=== PATIENT | female | born 1955 | race Caucasian/White ===

== ENCOUNTER → 2016-11-15 | Outpatient (CLI) | payer MEDICARE, OTHER ==
[~2016-11-15] MED LIST: 00186-0370-20 IH; ABILIFY 10MG TA10 MG PO; ABILIFY30 MG PO; APAP PO; ARICEPT10 MG PO; ATIVAN0.5 MG PO; ATIVAN2 MG; AZASAN75 MG PO; B-12100 MCG IM; CALCIUM600 M2; CENTRUM SILVER1 TA1 PO; COLESTID 1GM1 G PO; CYCLOBENZAPRINE10 MG PO; DESYREL DIVIDO150 M1 PO; DEXILANT60 MG PO; DIAZEPAM5 MG/5 ML PO; FLEXERIL 1010 MG/TAB PO; HUMIRA40 MG/0.1 SC; LAMICTAL 100MG100 MG PO; LAMICTAL 25MG T25 MG PO; LITHIUM 30300 MG/CAP PO; LORTAB 5/500 501 TAB PO; MASON NATURAL1200 MG PO; MELATONIN3 M1; MULTIVITAMIN SEN PO; MYSOLINE50 MG PO; NAPROSYN500 MG PO; NORCO 325 MG-51 TAB PO; NORCO 325 MG-7.1 TAB PO; OXYCODONE PO; PERCOCET 325 MG1 TA2 PO; PERCOCET 325 MG1 TA3 PO; PERCOCET 325 MG1 TAB PO; POTASSIUM99 MG PO; PREDNISONE1 MG PO; PRILOSEC 20MG20 MG PO; PRILOSEC10 MG PO; PROVENTIL0.09 MG/A1 IH; PROZAC 20MG20 MG PO; PROZAC40 MG PO; ROXICODONE 55 MG/TAB PO; SEROQUEL XR300 MG PO; SEROQUEL400 MG PO; SINEMET 25-1001 TAB PO; SINGULAIR10 MG PO; SYMBICORT1 AE1 IH; TRAZODONE HCL100 MG PO; VALIUM 5MG T5 MG/TAB PO; VITAMIN B11000 MCG/M IM; VITAMIN B12 PO; VITAMIND3 5000 PO; WELCHOL 625MG625 MG PO; XANAX0.5 MG PO; [UNRECOGNIZED DRUG - OTHER]
== END ==
LOC: BHSO 13:56
DX: F31.81 Bipolar II disorder (principal)

== ENCOUNTER → 2016-11-27 | Outpatient (CLI) | payer MEDICARE, OTHER | LOC: MC.RAD 13:40 | DX: Z12.31 Encounter for screening mammogram for malignant neoplasm of breast (principal) ==

== ENCOUNTER → 2017-01-03 | Outpatient (CLI) | payer MEDICARE, OTHER | LOC: BHSO 13:50 | DX: F31.73 Bipolar disorder, in partial remission, most recent episode manic (principal) ==

== ENCOUNTER 2017-01-19 05:29 | Day surgery (SDC) | payer MEDICARE, OTHER ==
[~2017-01-19] VITALS: Ht 160 cm; Wt 72.0 kg
[~2017-01-19 05:29] MED LIST changes: -ABILIFY30 MG PO; -PERCOCET 325 MG1 TA2 PO; -PERCOCET 325 MG1 TA3 PO; -PROZAC40 MG PO; -SEROQUEL XR300 MG PO
[2017-01-19] MEDS ORDERED: ABILIFY30 MG PO (06:35)
[2017-01-19] MEDS ORDERED: PROZAC40 MG PO (06:37)
[2017-01-19 06:39] VITALS: BP 122/67; PULSE 81; TEMP 98.1
[2017-01-19 10:00] VITALS: BP 117/62; PULSE 75; TEMP 98
[2017-01-19 10:15] VITALS: BP 114/51; PULSE 73
[2017-01-19 10:30] VITALS: BP 108/52; PULSE 73
[2017-01-19] MEDS ORDERED: PERCOCET 325 MG1 TA3 PO (10:35)
[2017-01-19 10:45] VITALS: BP 105/59; PULSE 73
== END 2017-01-19 11:08 | disposition home or self-care (01) ==
LOC: SDCO 05:29
DX: M20.11 Hallux valgus (acquired), right foot (principal); M20.41 Other hammer toe(s) (acquired), right foot; M19.071 Primary osteoarthritis, right ankle and foot; F17.210 Nicotine dependence, cigarettes, uncomplicated
CPT/HCPCS: C1713; J0670; J0690; J2250; J2704; J3010; J7120

== ENCOUNTER → 2017-02-27 | Outpatient (CLI) | payer MEDICARE, OTHER ==
[~2017-02-27] MED LIST changes: +ABILIFY30 MG PO; +PERCOCET 325 MG1 TA2 PO; +PERCOCET 325 MG1 TA3 PO; +PROZAC40 MG PO; +SEROQUEL XR300 MG PO
== END ==
LOC: BHSO 13:22
DX: F31.73 Bipolar disorder, in partial remission, most recent episode manic (principal)

== ENCOUNTER → 2017-04-25 | Outpatient (CLI) | payer MEDICARE, OTHER | LOC: BHSO 12:50 | DX: F31.73 Bipolar disorder, in partial remission, most recent episode manic (principal) ==

== ENCOUNTER 2017-05-22 08:08 | Day surgery (SDC) | payer MEDICARE, OTHER ==
[~2017-05-22] VITALS: Ht 160 cm; Wt 66.1 kg
[2017-05-22] VITALS (7 sets, daily range): BP systolic 87–129; BP diastolic 50–87; PULSE 71–81; TEMP 98.2
[~2017-05-22 08:08] MED LIST changes: -PERCOCET 325 MG1 TA2 PO; -SEROQUEL XR300 MG PO
== END 2017-05-22 12:00 | disposition home or self-care (01) ==
LOC: SDCO 08:08
DX: L72.0 Epidermal cyst (principal); M19.90 Unspecified osteoarthritis, unspecified site; J45.909 Unspecified asthma, uncomplicated; F41.9 Anxiety disorder, unspecified; F32.3 Major depressive disorder, single episode, severe with psychotic features; K21.9 Gastro-esophageal reflux disease without esophagitis; G43.909 Migraine, unspecified, not intractable, without status migrainosus; F17.210 Nicotine dependence, cigarettes, uncomplicated; G47.33 Obstructive sleep apnea (adult) (pediatric); Z90.49 Acquired absence of other specified parts of digestive tract
CPT/HCPCS: J1885; J2250; J2405; J2704; J3010; J7120

== ENCOUNTER 2017-06-02 09:30 | Emergency (ER) | payer MEDICARE, OTHER ==
[~2017-06-02] VITALS: Ht 160 cm; Wt 64.5 kg
[2017-06-02 09:32] VITALS: TEMP 98.6
[2017-06-02] MEDS ORDERED: SEROQUEL XR300 MG PO (09:50)
[2017-06-02] MEDS ORDERED: DESYREL DIVIDO150 M1 PO (09:51)
[2017-06-02] MEDS ORDERED: PERCOCET 325 MG1 TA2 PO (10:50)
[2017-06-02 11:10] VITALS: BP 118/62; PULSE 74
== END 2017-06-02 11:10 | disposition home or self-care (01) ==
LOC: COL.ER 09:30
DX: S63.501A Unspecified sprain of right wrist, initial encounter (principal); K50.00 Crohn's disease of small intestine without complications; J45.909 Unspecified asthma, uncomplicated; W01.10XA Fall on same level from slipping, tripping and stumbling with subsequent striking against unspecified object, initial encounter; Y92.009 Unspecified place in unspecified non-institutional (private) residence as the place of occurrence of the external cause

== ENCOUNTER → 2017-09-07 | Outpatient (CLI) | payer MEDICARE, OTHER ==
[~2017-09-07] MED LIST changes: +PERCOCET 325 MG1 TA2 PO; +SEROQUEL XR300 MG PO
== END ==
LOC: BHSO 10:54
DX: F31.73 Bipolar disorder, in partial remission, most recent episode manic (principal)

== ENCOUNTER → 2017-11-21 | Outpatient (CLI) | payer MEDICARE, OTHER | LOC: COL.PUL 12:49 | DX: J44.9 Chronic obstructive pulmonary disease, unspecified (principal); F17.210 Nicotine dependence, cigarettes, uncomplicated ==

== ENCOUNTER → 2017-12-25 | Outpatient (CLI) | payer MEDICARE, OTHER | LOC: BHSO 11:14 | DX: F25.0 Schizoaffective disorder, bipolar type (principal) | CPT/HCPCS: G0463 ==

== ENCOUNTER → 2018-01-04 | Outpatient (CLI) | payer MEDICARE, OTHER | LOC: MC.RAD 10:20 | DX: Z12.31 Encounter for screening mammogram for malignant neoplasm of breast (principal); R92.0 Mammographic microcalcification found on diagnostic imaging of breast ==

== ENCOUNTER → 2018-01-15 | Outpatient (CLI) | payer MEDICARE, OTHER | LOC: COL.RAD 13:29 | DX: M25.561 Pain in right knee (principal) ==

== ENCOUNTER → 2018-01-18 | Outpatient (CLI) | payer MEDICARE, OTHER | LOC: MC.RAD 11:23 | DX: R92.0 Mammographic microcalcification found on diagnostic imaging of breast (principal) ==

== ENCOUNTER → 2018-02-15 | Outpatient (CLI) | payer MEDICARE, OTHER | LOC: BHSO 13:34 | DX: F25.0 Schizoaffective disorder, bipolar type (principal) | CPT/HCPCS: G0463 ==

== ENCOUNTER → 2018-02-21 | Outpatient (CLI) | payer MEDICARE, OTHER ==
[2018-02-21 10:52] LABS: ALBUMIN 3.8 gm/dL (3.5-5.0); BILIRUBIN,TOTAL 0.4 mg/dL (0.0-1.0); CALCIUM 9.1 mg/dL (8.4-10.2); CHOLESTEROL RISK RATIO 2.8; CREATININE, serum 0.87 mg/dL (0.52-1.25); POTASSIUM 4.3 mmol/L (3.4-5.0); TOTAL PROTEIN 7.7 gm/dL (6.4-8.2)
[2018-02-21 11:22] LABS: THYROID STIMULATING HORMONE 2.43 uIU/mL (0.465-4.680)
== END ==
LOC: COL.LAB 10:09
PROVIDERS: Internal Medicine Interventional Cardiology
DX: Z79.899 Other long term (current) drug therapy (principal)

== ENCOUNTER → 2018-05-17 | Outpatient (CLI) | payer MEDICARE, OTHER | LOC: BHSO 10:00 | DX: F43.10 Post-traumatic stress disorder, unspecified (principal) | CPT/HCPCS: G0463 ==

== ENCOUNTER → 2018-06-12 | Outpatient (CLI) | payer MEDICARE, OTHER ==
[~2018-06-12] MED LIST changes: +ESTRACE0.1 MG/GM VG; +EVISTA 60MG60 MG/TAB PO; +NYSTATIN CREAM15 GM TP; +SPIRIVA RE2.5 MCG/Ac IH; +WELLBUTRIN XL150 MG PO
== END ==
LOC: COL.VAS 08:39
DX: J44.9 Chronic obstructive pulmonary disease, unspecified (principal); J45.902 Unspecified asthma with status asthmaticus; I34.0 Nonrheumatic mitral (valve) insufficiency

== ENCOUNTER 2018-07-02 20:57 | Emergency (ER) | payer MEDICARE, OTHER ==
[~2018-07-02] VITALS: Ht 160 cm; Wt 79.5 kg
[2018-07-02 21:01] VITALS: BP 144/79; TEMP 98.9
[2018-07-02] MEDS ORDERED: PERCOCET 325 MG1 TA2 PO (21:28)
[2018-07-02 21:45] VITALS: PULSE 77
== END 2018-07-02 23:54 | disposition home or self-care (01) ==
LOC: COL.ER 20:57
DX: M25.561 Pain in right knee (principal); F41.0 Panic disorder [episodic paroxysmal anxiety]; F31.9 Bipolar disorder, unspecified; Z87.19 Personal history of other diseases of the digestive system

== ENCOUNTER → 2018-07-16 | Outpatient (CLI) | payer MEDICARE, OTHER ==
[2018-07-16 09:45] LABS: HEMATOCRIT 43.9 % (37.0-47.0); HEMOGLOBIN 14.6 g/dl (12.5-16.0); MEAN CELL VOLUME 96 fl (80.0-100.0); MEAN CORPUSCULAR HEMOGLOBIN 32 pg (27.0-31.0); MEAN CORPUSCULAR HGB CONC 33 g/dl (33.0-37.0); MEAN PLATELET VOLUME 10.4 fl (7.4-10.4); PLATELET COUNT 254 K/mm3 (130-400); RED BLOOD COUNT 4.56 M/mm3 (4.10-5.30); REDCELL DISTRIBUTION WIDTH-CV 14.2 % (11.5-14.5)
[2018-07-16 10:10] LABS: ERYTHROCYTE SEDIMENTATION RATE 9 mm/hr (0-30)
== END ==
LOC: COL.LAB 08:52
PROVIDERS: Orthopaedic Surgery
DX: M25.561 Pain in right knee (principal); Z98.890 Other specified postprocedural states

== ENCOUNTER → 2018-07-17 | Outpatient (CLI) | payer MEDICARE, OTHER | LOC: BHSO 13:35 | DX: F43.10 Post-traumatic stress disorder, unspecified (principal) | CPT/HCPCS: G0463 ==

== ENCOUNTER → 2018-09-27 | Outpatient (CLI) | payer MEDICARE, OTHER | LOC: BHSO 12:55 | DX: F43.10 Post-traumatic stress disorder, unspecified (principal) | CPT/HCPCS: G0463 ==

== ENCOUNTER → 2019-01-23 | Outpatient (CLI) | payer MEDICARE, OTHER | LOC: MC.RAD 14:45 | DX: Z12.31 Encounter for screening mammogram for malignant neoplasm of breast (principal) ==

== ENCOUNTER → 2019-03-12 | Outpatient (CLI) | payer MEDICARE, OTHER | LOC: BHSO 13:01 | DX: F43.10 Post-traumatic stress disorder, unspecified (principal) | CPT/HCPCS: G0463 ==

== ENCOUNTER → 2019-05-22 | Outpatient (CLI) | payer MEDICARE, OTHER ==
[2019-05-22 16:47] LABS: BASO % 0.6 % (0.0-2.0); EOS # 0.1 (0.0-0.7); EOS % 1.7 % (0-4.0); GRAN # 2.4 (1.4-6.5); GRAN % 51.7 % (42.2-75.2); HEMATOCRIT 36.3 % (37.0-47.0); HEMOGLOBIN 12.6 g/dl (12.5-16.0); LYMPH # 1.9 (1.2-3.4); LYMPH % 39.4 % (20.0-51.0); MEAN CELL VOLUME 99 fl (80.0-100.0); MEAN CORPUSCULAR HEMOGLOBIN 34 pg (27.0-31.0); MEAN CORPUSCULAR HGB CONC 35 g/dl (33.0-37.0); MEAN PLATELET VOLUME 12.1 fl (7.4-10.4); MONO # 0.3 (0.1-0.6); MONO % 6.2 % (1.7-9.3); PLATELET COUNT 76 K/mm3 (130-400); RED BLOOD COUNT 3.67 M/mm3 (4.10-5.30); REDCELL DISTRIBUTION WIDTH-CV 14.5 % (11.5-14.5)
== END ==
LOC: COL.LAB 15:36
PROVIDERS: Internal Medicine Pulmonary Disease
DX: R05 Cough (principal)

== ENCOUNTER 2019-05-30 08:53 | Day surgery (SDC) | payer MEDICARE, OTHER ==
[~2019-05-30] VITALS: Ht 160 cm; Wt 76.0 kg
[~2019-05-30 08:53] MED LIST changes: -HUMIRA40 MG/0.1 SC; +HUMIRA40 MG/0.8 SQ
[2019-05-30] MEDS ORDERED: PROAIR HFA0.09 MG/AC IH (09:44)
[2019-05-30] MEDS ORDERED: MIRAPEX 0.0.125 MG/T PO (09:45)
[2019-05-30] MEDS ORDERED: SEROQUEL 200MG200 MG PO (09:46)
[2019-05-30 10:05] VITALS: BP 125/70; PULSE 80; TEMP 98.9
[2019-05-30 10:55] VITALS: BP 141/81; PULSE 75; TEMP 98.7
--- NOTE | 2019-05-30 10:55 | NUR ---
Pt to [facility] bay 8 via cart. Pt awake and alert. Pt ambulates to recliner with stand by assistance. Warm blanket provided. VSS. Muffin and soda given per pt request. No visitors are here with pt at this time. Will continue to monitor. Call light within reach.
[2019-05-30 11:10] VITALS: BP 100/64; PULSE 82
--- NOTE | 2019-05-30 11:10 | NUR ---
Pt continues to rest. Denies needs. Tolerating food and fluids without problems. Call light within reach.
[2019-05-30 11:25] VITALS: BP 122/68; PULSE 72
--- NOTE | 2019-05-30 11:25 | NUR ---
Pt continues to rest. Denies needs. Call light within reach.
--- NOTE | 2019-05-30 11:40 | NUR ---
Discharge instructions reviewed. Pt voices understanding. IV site discontinued with all parts intact. Pt up to dress. Call light within reach.
--- NOTE | 2019-05-30 11:50 | NUR ---
Pt escorted to private car via wheel chair. Pt accompanied home by her .
== END 2019-05-30 11:50 | disposition home or self-care (01) ==
LOC: SDCO 08:53
DX: K21.0 Gastro-esophageal reflux disease with esophagitis (principal); K50.90 Crohn's disease, unspecified, without complications; F17.210 Nicotine dependence, cigarettes, uncomplicated; K21.9 Gastro-esophageal reflux disease without esophagitis; K44.9 Diaphragmatic hernia without obstruction or gangrene; G89.29 Other chronic pain; M54.2 Cervicalgia; M19.90 Unspecified osteoarthritis, unspecified site; Z79.899 Other long term (current) drug therapy; Z88.6 Allergy status to analgesic agent; Z88.0 Allergy status to penicillin; Z88.8 Allergy status to other drugs, medicaments and biological substances; F32.9 Major depressive disorder, single episode, unspecified; F41.9 Anxiety disorder, unspecified; J43.9 Emphysema, unspecified; G47.33 Obstructive sleep apnea (adult) (pediatric)
CPT/HCPCS: J2704

== ENCOUNTER → 2019-07-02 | Outpatient (CLI) | payer MEDICARE, OTHER ==
[~2019-07-02] MED LIST changes: +MIRAPEX 0.0.125 MG/T PO; +PROAIR HFA0.09 MG/AC IH; +SEROQUEL 200MG200 MG PO
[2019-07-02 16:06] LABS: BASO # 0.1 (0.0-0.2); BASO % 0.7 % (0.0-2.0); EOS # 0.2 (0.0-0.7); EOS % 2.4 % (0-4.0); GRAN # 3.2 (1.4-6.5); GRAN % 36.7 % (42.2-75.2); HEMATOCRIT 40.9 % (37.0-47.0); HEMOGLOBIN 13.5 g/dl (12.5-16.0); LYMPH # 4.3 (1.2-3.4); LYMPH % 49.7 % (20.0-51.0); MEAN CELL VOLUME 96 fl (80.0-100.0); MEAN CORPUSCULAR HEMOGLOBIN 32 pg (27.0-31.0); MEAN CORPUSCULAR HGB CONC 33 g/dl (33.0-37.0); MEAN PLATELET VOLUME 10.4 fl (7.4-10.4); MONO # 0.9 (0.1-0.6); MONO % 10.4 % (1.7-9.3); PLATELET COUNT 211 K/mm3 (130-400); RED BLOOD COUNT 4.25 M/mm3 (4.10-5.30); REDCELL DISTRIBUTION WIDTH-CV 14.2 % (11.5-14.5)
== END ==
LOC: COL.LAB 15:18
PROVIDERS: Internal Medicine Pulmonary Disease
DX: J44.9 Chronic obstructive pulmonary disease, unspecified (principal)

== ENCOUNTER → 2019-07-28 | Outpatient (CLI) | payer MEDICARE, OTHER | LOC: COL.VAS 13:30 | DX: I36.1 Nonrheumatic tricuspid (valve) insufficiency (principal); J44.9 Chronic obstructive pulmonary disease, unspecified ==

== ENCOUNTER → 2019-10-29 | Outpatient (CLI) | payer MEDICARE, OTHER | LOC: BHSO 08:19 | DX: F43.10 Post-traumatic stress disorder, unspecified (principal) | CPT/HCPCS: G0463 ==

== ENCOUNTER → 2019-11-11 | Outpatient (CLI) | payer MEDICARE, OTHER ==
[2019-11-11 22:13] LABS: RHEUMATOID FACTOR-SCREEN <15 IU/mL (0-29)
[2019-11-11 23:02] LABS: IMMUNOGLOBULIN A 438 mg/dL (69-517); IMMUNOGLOBULIN G 1225 mg/dL (552-1631); IMMUNOGLOBULIN M, QUANTITATIVE 123 mg/dL (33-293)
[2019-11-13 14:04] LABS: ANGIOTENSIN CONVERTING ENZYME 83 U/L (16 - 85)
[2019-11-13 15:46] LABS: C-ANCA 8 U/mL (0-99)
== END ==
LOC: COL.LAB 11:28
PROVIDERS: Internal Medicine Pulmonary Disease
DX: J84.10 Pulmonary fibrosis, unspecified (principal)

== ENCOUNTER → 2019-12-25 | Outpatient (CLI) | payer MEDICARE, OTHER ==
[2019-12-25 15:43] LABS: HEMATOCRIT 41.4 % (37.0-47.0); HEMOGLOBIN 14.1 g/dl (12.5-16.0); MEAN CELL VOLUME 93 fl (80.0-100.0); MEAN CORPUSCULAR HEMOGLOBIN 32 pg (27.0-31.0); MEAN CORPUSCULAR HGB CONC 34 g/dl (33.0-37.0); MEAN PLATELET VOLUME 10.2 fl (7.4-10.4); PLATELET COUNT 211 K/mm3 (130-400); RED BLOOD COUNT 4.45 M/mm3 (4.10-5.30); REDCELL DISTRIBUTION WIDTH-CV 14.2 % (11.5-14.5)
[2019-12-25 15:53] LABS: ALBUMIN 4.2 gm/dL (3.5-5.0); BILIRUBIN,TOTAL 0.5 mg/dL (0.0-1.0); CALCIUM 9.6 mg/dL (8.4-10.2); CREATININE, serum 0.74 (0.52-1.25); POTASSIUM 3.9 mmol/L (3.4-5.0); TOTAL PROTEIN 7.6 gm/dL (6.4-8.2)
[2019-12-25 16:00] LABS: BAND 1 % (0-10); EOSINOPHIL 3 % (0-4); LYMPHOCYTE 47 % (20.0-51.0); NEUTROPHILS 43 % (42.0-75.2); PLATELET ESTIMATE NORMAL (NORMAL)
== END ==
LOC: COL.LAB 15:08
PROVIDERS: Family Medicine
DX: M81.0 Age-related osteoporosis without current pathological fracture (principal); E53.8 Deficiency of other specified B group vitamins

== ENCOUNTER → 2020-01-30 | Outpatient (CLI) | payer MEDICARE, OTHER ==
[~2020-01-30] MED LIST changes: +ABILIFY 15MG TA15 MG PO; -ABILIFY30 MG PO; -SEROQUEL 200MG200 MG PO; +SEROQUEL300 MG PO
== END ==
LOC: COL.LAB 08:34
DX: J44.9 Chronic obstructive pulmonary disease, unspecified (principal)

== ENCOUNTER → 2020-01-30 | Outpatient (CLI) | payer MEDICARE, OTHER ==
[2020-01-30 09:29] LABS: ALBUMIN 4.2 gm/dL (3.5-5.0); BILIRUBIN,TOTAL 0.6 mg/dL (0.0-1.0); CALCIUM 9.3 mg/dL (8.4-10.2); CHOLESTEROL RISK RATIO 2.5; CREATININE, serum 0.78 (0.52-1.25); POTASSIUM 3.6 mmol/L (3.4-5.0); TOTAL PROTEIN 7.7 gm/dL (6.4-8.2)
[2020-01-30 09:58] LABS: THYROID STIMULATING HORMONE 3.04 uIU/mL (0.465-4.680)
== END ==
LOC: COL.LAB 08:36
PROVIDERS: Psychiatry & Neurology Psychiatry
DX: Z79.899 Other long term (current) drug therapy (principal)

== ENCOUNTER 2020-02-11 19:08 | Inpatient (IN) | payer MEDICARE ==
[~2020-02-11] VITALS: Ht 157.5 cm; Wt 71.6 kg
[2020-02-11 20:00] LABS: HEMATOCRIT 39.9 % (37.0-47.0); MEAN CELL VOLUME 91 fl (80.0-100.0); MEAN CORPUSCULAR HEMOGLOBIN 32 pg (27.0-31.0); MEAN CORPUSCULAR HGB CONC 35 g/dl (33.0-37.0); MEAN PLATELET VOLUME 10.5 fl (7.4-10.4); PLATELET COUNT 187 K/mm3 (130-400); RED BLOOD COUNT 4.39 M/mm3 (4.10-5.30)
[2020-02-11 20:14] LABS: ALBUMIN 4.2 gm/dL (3.5-5.0); BILIRUBIN,TOTAL 1.5 mg/dL (0.0-1.0); CALCIUM 8.9 mg/dL (8.4-10.2); CREATININE, serum 0.56 (0.52-1.25); POTASSIUM 3.5 mmol/L (3.4-5.0); TOTAL PROTEIN 7.9 gm/dL (6.4-8.2)
[2020-02-11 20:44] LABS: LYMPHOCYTE 17 % (20.0-51.0); NEUTROPHILS 77 % (42.0-75.2); PLATELET ESTIMATE NORMAL (NORMAL)
[2020-02-11 22:13] LABS: COLLECTION METHOD CLEAN CATCH
[2020-02-11 22:21] LABS: MUCOUS Present /lpf; PH 7 (5-8); SQUAMOUS EPITHELIAL 0-2 /hpf; URINE APPEARANCE Hazy; URINE BACTERIA Rare /hpf; URINE BILIRUBIN Negative (NEGATIVE); URINE BLOOD Negative (NEGATIVE); URINE COLOR Yellow; URINE GLUCOSE Negative (NEGATIVE); URINE KETONE 2+ (NEGATIVE); URINE LEUKOCYTE ESTERASE 2+ (NEGATIVE); URINE NITRATE Negative (NEGATIVE); URINE PROTEIN(semi-quant) 1+ (NEGATIVE); URINE RBC 0-2 /hpf
[2020-02-11 23:47] LABS: INR 1.1 (0.8-3.0); PROTHROMBIN TIME 12.2 SECONDS (9.7-12.8)
[2020-02-11 23:57] LABS: CREATINE KINASE 119 U/L (30-135); LACTATE DEHYDROGENASE 1001 U/L (313-618); MAGNESIUM 1.8 mg/dL (1.6-2.3)
[2020-02-12] VITALS (7 sets, daily range): BP systolic 121–138; BP diastolic 60–82; PULSE 86–91; TEMP 98.1–99.6
[2020-02-12 00:10] LABS: C-REACTIVE PROTEIN 13.8 mg/dL (0.0-0.9); TROPONIN-I < 0.012 ng/mL (0.000-0.035)
--- NOTE | 2020-02-12 00:15 | NUR ---
Received patient via stretcher from ER. She is alert and oriented. She is independent. She has some body pain and cough. With INT at right forearm. Covid 19 swab done at ER already. Instructed patient on her diet and fluid restriction. Hat placed in the toilet bowl and explained to patient the need for sample for urine. Instructed her for sputum specimen as well though she said her cough is dry.
[2020-02-12] MEDS ORDERED: OMEGA-3 1000 MG1 CAP PO (00:29)
[2020-02-12] MEDS ORDERED: VITAMIN D31000 I1 PO (00:30)
[2020-02-12] MEDS ORDERED: DESYREL DIVIDO150 M1 PO (00:32)
[2020-02-12] MEDS ORDERED: VALIUM 10MG10 MG/TAB PO (00:34)
[2020-02-12] MEDS ORDERED: WELLBUTRIN XL150 MG PO (00:36)
--- NOTE | 2020-02-12 00:55 | NUR ---
Seroquel 100mg not available in [facility], only 25mg. Informed tobacco warehouse agent and they will get the required dosage in pharmacy.
[2020-02-12 03:30] LABS: ARTERIAL BLD GAS O2 SATURATION 90.3 % (92-100); ARTERIAL BLD GAS TCO2 CT 18.5; ARTERIAL BLOOD GAS BASE EXCESS -5.4 (-2-2); ARTERIAL BLOOD GAS HCO3 17.6 meq/L (22-26); ARTERIAL BLOOD GAS PCO2 27.9 mmHg (35-45); ARTERIAL BLOOD GAS PO2 55.5 mmHg (80-100); ARTERIAL BLOOD GAS pH 7.42 (7.35-7.45)
--- NOTE | 2020-02-12 07:39 | NUR ---
Patient is afebrile the whole shift. Still with dry cough. ABG is a bit low, started with O2 at 2lpm via NC. Will endorse to
--- NOTE | 2020-02-12 11:00 | NUR ---
Patient has been up and down a lot. She stated she is having more coughing today than yesterday but that it is still a very dry cough. No complaints of nausea. She stated she has a continuous headached but its better this morning. No other changes at this time. Offered something for her couh but she did not want it at this time. Call light within reach.
--- NOTE | 2020-02-12 11:21 | NUR ---
RAUL contacted the patient's , Felipe (ph#[phone]), to discuss discharge plan. The patient is on COVID precautions and did not answer her phone. The patient lives in [place] with her . Felipe reports that the patient is independent with ADLs and has a CPAP. The patient's PCP is Dr. Dat Bolivar and she receives her medications at [facility]. He reports no difficulties obtaining her meds. The patient does not have advanced directives completed. Felipe reports that the plan is for the patient to return back home with him upon discharge. The patient is pending results for COVID. She is currently on 2 liters of oxygen. SW to continue to follow.
[2020-02-12 14:18] LABS: BASO % 0.3 % (0.0-2.0); EOS # 0.2 (0.0-0.7); EOS % 1.4 % (0-4.0); GRAN # 8.2 (1.4-6.5); GRAN % 69.7 % (42.2-75.2); HEMATOCRIT 37.8 % (37.0-47.0); HEMOGLOBIN 13.1 g/dl (12.5-16.0); LYMPH # 2.1 (1.2-3.4); LYMPH % 18.1 % (20.0-51.0); MEAN CELL VOLUME 92 fl (80.0-100.0); MEAN CORPUSCULAR HEMOGLOBIN 32 pg (27.0-31.0); MEAN CORPUSCULAR HGB CONC 35 g/dl (33.0-37.0); MEAN PLATELET VOLUME 10.6 fl (7.4-10.4); MONO # 1.2 (0.1-0.6); MONO % 10.2 % (1.7-9.3); PLATELET COUNT 160 K/mm3 (130-400); REDCELL DISTRIBUTION WIDTH-CV 14.3 % (11.5-14.5)
[2020-02-12 14:28] LABS: ALBUMIN 3.6 gm/dL (3.5-5.0); BILIRUBIN,TOTAL 1.3 mg/dL (0.0-1.0); CALCIUM 8.4 mg/dL (8.4-10.2); CREATININE, serum 0.57 (0.52-1.25); POTASSIUM 3.4 mmol/L (3.4-5.0); TOTAL PROTEIN 7.1 gm/dL (6.4-8.2)
--- NOTE | 2020-02-12 19:00 | NUR ---
Patients headache and cough got worse this afternoon. She stated that the tramadol and tylenol is not helping her head. She got one time orders for norco and toradol that was given. Patients IV was changed this afternoon, it infiltrated. No other changes at this time. Call light within reach.
--- NOTE | 2020-02-12 20:45 | NUR ---
Resting in bed. Assessment complete. Wheezing with expiration. Denies shortness of breath. On 2 liters nasal cannula at 90% currently. Heart sounds normal. Bowels active x4. Pulses present. No edema noted. IV left forearm without complications. Denies pain. Denies needs. Call light in reach. Will monitor.
--- NOTE | 2020-02-12 22:00 | NUR ---
Notified Lucia CAMARA patient covid test negative. Okay to move out of isolation. Will be moved to 307.
--- NOTE | 2020-02-12 22:32 | NUR ---
Patient reports 8/10 headache from dry cough. Refused norco request toradol. HOA Myers added one time dose for patient.
[2020-02-13] VITALS (582 sets, daily range): BP systolic 134–143; BP diastolic 68–80; PULSE 81–96; TEMP 98.3–99.7; O2SAT 82–99
--- NOTE | 2020-02-13 04:10 | NUR ---
Reports airway tightness. 88% on 2 liters. Increased to 3 liters. 90-91%. Right upper lobe dimished otherwise clear. Contacted respiratory for PRN albuterol inhaler. Will monitor.
--- NOTE | 2020-02-13 04:44 | NUR ---
0420 patient continued to have increase oxygen needs up to 6 liters oxymask. 0429 Spoke with Lucia CAMARA. ABG and chest CT ordered. patient updated. Spoke with respiratory.
[2020-02-13 05:09] LABS: ARTERIAL BLD GAS O2 SATURATION 92.1 % (92-100); ARTERIAL BLD GAS TCO2 CT 18.7; ARTERIAL BLOOD GAS BASE EXCESS -5.7 (-2-2); ARTERIAL BLOOD GAS HCO3 17.8 meq/L (22-26); ARTERIAL BLOOD GAS PCO2 29.4 mmHg (35-45); ARTERIAL BLOOD GAS PO2 61.1 mmHg (80-100)
--- NOTE | 2020-02-13 05:09 | NUR ---
Patient left for CT. Santos leone.
[2020-02-13 05:34] LABS: BASO % 0.3 % (0.0-2.0); EOS # 0.3 (0.0-0.7); EOS % 1.9 % (0-4.0); GRAN # 10.6 (1.4-6.5); HEMOGLOBIN 12.6 g/dl (12.5-16.0); LYMPH # 3.1 (1.2-3.4); LYMPH % 20.2 % (20.0-51.0); MEAN CELL VOLUME 94 fl (80.0-100.0); MEAN CORPUSCULAR HEMOGLOBIN 32 pg (27.0-31.0); MEAN CORPUSCULAR HGB CONC 34 g/dl (33.0-37.0); MONO # 1.1 (0.1-0.6); MONO % 7.1 % (1.7-9.3); PLATELET COUNT 175 K/mm3 (130-400); RED BLOOD COUNT 3.92 M/mm3 (4.10-5.30); REDCELL DISTRIBUTION WIDTH-CV 14.2 % (11.5-14.5)
[2020-02-13 05:35] LABS: HEMATOCRIT 36.8 % (37.0-47.0)
--- NOTE | 2020-02-13 05:40 | NUR ---
Patient returned from CT. INT started in left AC.
[2020-02-13 05:46] LABS: ALBUMIN 3.4 gm/dL (3.5-5.0); BILIRUBIN,TOTAL 1.2 mg/dL (0.0-1.0); CALCIUM 8.1 mg/dL (8.4-10.2); CREATININE, serum 0.58 (0.52-1.25); POTASSIUM 3.2 mmol/L (3.4-5.0); TOTAL PROTEIN 7.1 gm/dL (6.4-8.2)
--- NOTE | 2020-02-13 06:00 | NUR ---
CT results in. Lucia notified. Orders added.
--- NOTE | 2020-02-13 06:48 | NUR ---
Vancomycin Initial Dosing Pharmacy Note Ordering provider: Lucia Donovan APRN Indication/duration: PNA LABS: eCrCl~ 90 mL/min Recommendation: Loading dose: 1 gram ordered for 02/13/20 @ 07:00 Maintenance dose: 750 mg every 8 hours starting 02/13/20 @ 15:00 Trough goal: 15-20 ug/mL with first trough to be drawn 02/15/20 @ 06:30. Will continue to follow.
--- NOTE | 2020-02-13 07:11 | NUR ---
Report given to YAIMA Snider
--- NOTE | 2020-02-13 08:49 | NUR ---
Noted patient sitting on the side of bed. C/O significant shortness of breathe. States it worse when she moves around. She is currently on 7L/oxy mask with 02 stats 84-85%. Patient verbalizes difficultly breathing. Patient skin warm/dry. She is alert and oriented. Resp labored at 26/min. Lungs diminished with noted coarse breath sounds and expiratory wheezing. Patient oxygen turned up to 15L/Mask. RT made aware and Dr. Jauregui called. New orders recieved for EKG/ CXR/and ABG's. Patient/RT/Radiology made made aware. 02 sats are currently 92% on 15l/mask
--- NOTE | 2020-02-13 08:58 | NUR ---
Pt awake and alert this morning, has C/O headache, medications given for relief. Shift assessments complete, left Pt call light in reach, bed in lowest position.
[2020-02-13 09:12] LABS: ARTERIAL BLD GAS O2 SATURATION 92.2 % (92-100); ARTERIAL BLOOD GAS BASE EXCESS -3.8 (-2-2); ARTERIAL BLOOD GAS HCO3 19.1 meq/L (22-26); ARTERIAL BLOOD GAS PCO2 28.9 mmHg (35-45); ARTERIAL BLOOD GAS PO2 57.1 mmHg (80-100); ARTERIAL BLOOD GAS pH 7.44 (7.35-7.45)
--- NOTE | 2020-02-13 10:12 | NUR ---
The patient was transferred to ICU and is being retested for Covid-19 and placed back on precautions.
[2020-02-13 15:18] LABS: CREATININE, serum 0.63 (0.52-1.25); MAGNESIUM 1.8 mg/dL (1.6-2.3); POTASSIUM 3.8 mmol/L (3.4-5.0)
[2020-02-14] VITALS (764 sets, daily range): BP systolic 105–148; BP diastolic 58–79; PULSE 82–86; TEMP 97.8–99; O2SAT 74–99
[2020-02-14 07:07] LABS: BASO % 0.1 % (0.0-2.0); GRAN % 88.8 % (42.2-75.2); LYMPH # 1.1 (1.2-3.4); LYMPH % 7.4 % (20.0-51.0); MEAN CELL VOLUME 93 fl (80.0-100.0); MEAN CORPUSCULAR HEMOGLOBIN 32 pg (27.0-31.0); MEAN CORPUSCULAR HGB CONC 34 g/dl (33.0-37.0); MEAN PLATELET VOLUME 10.9 fl (7.4-10.4); MONO # 0.5 (0.1-0.6); MONO % 3.1 % (1.7-9.3); PLATELET COUNT 206 K/mm3 (130-400); RED BLOOD COUNT 4.08 M/mm3 (4.10-5.30); REDCELL DISTRIBUTION WIDTH-CV 14.2 % (11.5-14.5)
[2020-02-14 07:19] LABS: ALBUMIN 3.5 gm/dL (3.5-5.0); CALCIUM 8.2 mg/dL (8.4-10.2); CREATININE, serum 0.57 (0.52-1.25); POTASSIUM 3.8 mmol/L (3.4-5.0); TOTAL PROTEIN 7.3 gm/dL (6.4-8.2)
--- NOTE | 2020-02-14 12:56 | NUR ---
PT RESTING IN BED, CALM ANND APPEARS RELAXED AT THIS TIME, MD. DR DOHERTY AT BEDSIDE ASSESSING PT AND DR AVILA WAS HERE AT BEDSIDE EARLIER. PT REMAINS ON AIR-VO 30L AND 48%. UPDATE MD RE; K LVL AND MEDS PT WAS REQUESTING. ORDERS WERE RECIEVED. WILL CONTINUE TO MONITOR PT STATUS AND UPDATE MD'S NEEDED.
--- NOTE | 2020-02-14 18:44 | NUR ---
HERMINIO SENIOR POLICY ANALYST WAS CALLED AND UPDATED RE; PT DOA DESPITE SETTINGS ON AIR-VO, ORDERS RECIEVED.
[2020-02-14 19:27] LABS: ARTERIAL BLD GAS TCO2 CT 19.1; ARTERIAL BLOOD GAS BASE EXCESS -2.9 (-2-2); ARTERIAL BLOOD GAS HCO3 18.3 meq/L (22-26)
[2020-02-14 19:28] LABS: ARTERIAL BLOOD GAS PO2 48.4 mmHg (80-100)
--- NOTE | 2020-02-14 23:30 | NUR ---
At appx. 2030, the decision to intubate was discussed with the patient. All questions and concerns from the patient were answered by HOA Myers. PT moved from ICU room 4 to ICU room 8 since PT is no longer a PUI. Time out performed at 2157 in the patient room with the patient confirming the procedure. Intubation procedure lasted from 3439-4267. Appx. 45 minutes post intubation, PT BP dropped to a systolic in the 70's-80's. HOA Myers notified and an order for 1L LR bolus over 2 hours was placed. PT BP's back to goal range appx. 1 hour after giving bolus. Will Continue to monitor.
[2020-02-15] VITALS (887 sets, daily range): BP systolic 79–148; BP diastolic 50–79; PULSE 64–86; TEMP 97.5–98.2; O2SAT 76–100
[2020-02-15 00:58] LABS: ARTERIAL BLD GAS O2 SATURATION 95.6 % (92-100); ARTERIAL BLD GAS TCO2 CT 22.8; ARTERIAL BLOOD GAS BASE EXCESS -2.4 (-2-2); ARTERIAL BLOOD GAS HCO3 21.7 meq/L (22-26); ARTERIAL BLOOD GAS PCO2 35.4 mmHg (35-45); ARTERIAL BLOOD GAS pH 7.41 (7.35-7.45)
[2020-02-15 04:56] LABS: ARTERIAL BLD GAS O2 SATURATION 99.4 % (92-100); ARTERIAL BLD GAS TCO2 CT 22.3; ARTERIAL BLOOD GAS BASE EXCESS -2.5 (-2-2); ARTERIAL BLOOD GAS HCO3 21.2 meq/L (22-26); ARTERIAL BLOOD GAS PCO2 33.4 mmHg (35-45); ARTERIAL BLOOD GAS pH 7.42 (7.35-7.45)
[2020-02-15 06:29] LABS: BASO % 0.2 % (0.0-2.0); GRAN # 14.3 (1.4-6.5); GRAN % 79.5 % (42.2-75.2); HEMOGLOBIN 12.4 g/dl (12.5-16.0); LYMPH # 2.4 (1.2-3.4); LYMPH % 13.1 % (20.0-51.0); MEAN CELL VOLUME 93 fl (80.0-100.0); MEAN CORPUSCULAR HEMOGLOBIN 32 pg (27.0-31.0); MEAN CORPUSCULAR HGB CONC 34 g/dl (33.0-37.0); MEAN PLATELET VOLUME 10.8 fl (7.4-10.4); MONO # 1.2 (0.1-0.6); MONO % 6.6 % (1.7-9.3); PLATELET COUNT 216 K/mm3 (130-400); RED BLOOD COUNT 3.86 M/mm3 (4.10-5.30); REDCELL DISTRIBUTION WIDTH-CV 14.4 % (11.5-14.5)
[2020-02-15 06:43] LABS: ALBUMIN 3.2 gm/dL (3.5-5.0); BILIRUBIN,TOTAL 0.7 mg/dL (0.0-1.0); CALCIUM 7.9 mg/dL (8.4-10.2); CREATININE, serum 0.62 (0.52-1.25); PHOSPHOROUS 2.9 mg/dL (2.5-4.5); POTASSIUM 3.7 mmol/L (3.4-5.0); TOTAL PROTEIN 6.8 gm/dL (6.4-8.2)
--- NOTE | 2020-02-15 07:00 | NUR ---
Report given to YAIMA Graham.
--- NOTE | 2020-02-15 07:43 | NUR ---
Received report from YAIMA Boudreaux. Patient is resting in bed. Call light and bedside table are within reach.
--- NOTE | 2020-02-15 07:45 | NUR ---
Vancomycin Follow-up Pharmacy Note Current regimen: Vancomycin 750 mg IV q8h Vancomycin trough: 12.3 Adjustments: Will increase to Vancomycin 1 gm IV q8h. Pharmacy will continue to monitor and check a new Vancomycin trough on 02/16/12.
[2020-02-15 11:12] LABS: ARTERIAL BLD GAS O2 SATURATION 94.2 % (92-100); ARTERIAL BLD GAS TCO2 CT 22.5; ARTERIAL BLOOD GAS HCO3 21.4 meq/L (22-26); ARTERIAL BLOOD GAS PO2 73.2 mmHg (80-100); ARTERIAL BLOOD GAS pH 7.39 (7.35-7.45)
[2020-02-16] VITALS (825 sets, daily range): BP systolic 107–146; BP diastolic 56–83; PULSE 60–96; TEMP 97.3–98.8; O2SAT 66–100
[2020-02-16 05:28] LABS: ARTERIAL BLD GAS O2 SATURATION 96.2 % (92-100); ARTERIAL BLD GAS TCO2 CT 24.5; ARTERIAL BLOOD GAS BASE EXCESS -1.5 (-2-2); ARTERIAL BLOOD GAS HCO3 23.3 meq/L (22-26); ARTERIAL BLOOD GAS PCO2 39.5 mmHg (35-45); ARTERIAL BLOOD GAS pH 7.39 (7.35-7.45)
[2020-02-16 05:55] LABS: BASO % 0.1 % (0.0-2.0); EOS % 0.1 % (0-4.0); GRAN # 9.2 (1.4-6.5); GRAN % 76.6 % (42.2-75.2); HEMOGLOBIN 12.1 g/dl (12.5-16.0); LYMPH # 1.8 (1.2-3.4); LYMPH % 14.9 % (20.0-51.0); MEAN CELL VOLUME 95 fl (80.0-100.0); MEAN CORPUSCULAR HEMOGLOBIN 32 pg (27.0-31.0); MEAN CORPUSCULAR HGB CONC 34 g/dl (33.0-37.0); MEAN PLATELET VOLUME 10.7 fl (7.4-10.4); MONO # 0.9 (0.1-0.6); MONO % 7.6 % (1.7-9.3); PLATELET COUNT 223 K/mm3 (130-400); RED BLOOD COUNT 3.77 M/mm3 (4.10-5.30); REDCELL DISTRIBUTION WIDTH-CV 14.6 % (11.5-14.5)
[2020-02-16 05:56] LABS: HEMATOCRIT 35.8 % (37.0-47.0)
--- NOTE | 2020-02-16 06:00 | NUR ---
PT had a few episodes of anxiety but was calmed with increased sedation and therapeutic communication along with going through potential problems the patient may be experiencing (SOA, pain, reposition, suction, stretching, etc). Will continue to monitor, calm, and educate.
[2020-02-16 06:04] LABS: BILIRUBIN,TOTAL 0.5 mg/dL (0.0-1.0); CALCIUM 7.9 mg/dL (8.4-10.2); CREATININE, serum 0.54 (0.52-1.25); MAGNESIUM 2.8 mg/dL (1.6-2.3); POTASSIUM 4.1 mmol/L (3.4-5.0); TOTAL PROTEIN 6.5 gm/dL (6.4-8.2)
--- NOTE | 2020-02-16 07:00 | NUR ---
Report given to YAIMA Cosby.
--- NOTE | 2020-02-16 08:00 | NUR ---
Shift assessment complete at this time. Plan of care reviewed at bedside with patient. Additional time taken to address any other needs or concerns. Vitals stable at this time. Pt denies pain or any other discomforts. Bed in low position, call light within reach, will continue to monitor.
--- NOTE | 2020-02-16 08:38 | NUR ---
Fentanyl et Propofol gtts returned to pre-weaning trial rates per direction of Dr. Arias for purposes of pre-procedural sedation for bronchoscopy.
--- NOTE | 2020-02-16 09:09 | NUR ---
Fentanyl increased to 150 mcg/hr per direction of Dr. Arias for pre-procedural sedation.
--- NOTE | 2020-02-16 10:55 | NUR ---
Fentanyl et Propofol gtts returned to pre-procedure rates per direction of Dr. Arias.
--- NOTE | 2020-02-16 12:00 | NUR ---
Shift reassessment complete at this time. No changes from previous assessment noted. Vitals stable at this time post-bronch procedure. Pt denies pain or any other discomforts at this time. Bed in low position, call light within reach, will continue to monitor.
--- NOTE | 2020-02-16 13:26 | NUR ---
The patient's second COVID results came back negative. The patient remains on mechanical vent. SW to continue to follow.
--- NOTE | 2020-02-16 16:00 | NUR ---
Shift reassessment complete at this time. No changes from previous assessment noted. Vitals stable at this time while on ventilator. Pt denies pain or any other discomforts while on fentanyl et propofol gtts. Bed in low position, call light within reach, will continue to monitor.
--- NOTE | 2020-02-16 17:00 | NUR ---
No change made to sedation at this time. Pt is alert and calm at current sedation levels while on ventilator. Will continue to monitor and adjust sedation levels as indicated per orders.
--- NOTE | 2020-02-16 17:01 | NUR ---
Pt refused oral care at this time.
--- NOTE | 2020-02-16 19:09 | NUR ---
Report given to YAIMA Morocho.
[2020-02-17] VITALS (1011 sets, daily range): BP systolic 120–140; BP diastolic 70–109; PULSE 68–91; TEMP 97.5–98.6; O2SAT 53–100
--- NOTE | 2020-02-17 01:02 | NUR ---
Patient tolerating ventilator well. Denies having any pain or other concerns at this time. Will continue to monitor.
--- NOTE | 2020-02-17 05:22 | NUR ---
Spont Breathing Trial done at this time. Pt did very well, Vt 350-600 and RR well controled when coached. Pt does become anxious and increases RR. Spoke with RN regarding valium pt takes at home which pt had requested many times in days prior to intubation; med was held once intubated. RN states she will review with day shift and see if option to re-order. Resumed Assist Control after 20 minutes. Pt is agreeabel to try again later in day after some rest.
[2020-02-17 05:23] LABS: ARTERIAL BLD GAS O2 SATURATION 92.7 % (92-100); ARTERIAL BLD GAS TCO2 CT 21.3; ARTERIAL BLOOD GAS BASE EXCESS -4.1 (-2-2); ARTERIAL BLOOD GAS HCO3 20.3 meq/L (22-26); ARTERIAL BLOOD GAS PCO2 34.8 mmHg (35-45); ARTERIAL BLOOD GAS PO2 64.6 mmHg (80-100); ARTERIAL BLOOD GAS pH 7.38 (7.35-7.45)
--- NOTE | 2020-02-17 05:34 | NUR ---
Renetta on weaning trial. Patient tachypneac at times. Staff attempting to keep patient calm and slow down rate of breathing. Will continue monitor.
[2020-02-17 05:39] LABS: TB GOLD INTERPRETATION Negative (Negative)
[2020-02-17 05:56] LABS: BASO % 0.1 % (0.0-2.0); EOS % 0.1 % (0-4.0); GRAN # 9.9 (1.4-6.5); GRAN % 83.3 % (42.2-75.2); HEMOGLOBIN 11.6 g/dl (12.5-16.0); LYMPH # 1.2 (1.2-3.4); LYMPH % 10.2 % (20.0-51.0); MEAN CELL VOLUME 96 fl (80.0-100.0); MEAN CORPUSCULAR HEMOGLOBIN 32 pg (27.0-31.0); MEAN CORPUSCULAR HGB CONC 33 g/dl (33.0-37.0); MEAN PLATELET VOLUME 10.8 fl (7.4-10.4); MONO # 0.7 (0.1-0.6); MONO % 5.6 % (1.7-9.3); PLATELET COUNT 245 K/mm3 (130-400); RED BLOOD COUNT 3.68 M/mm3 (4.10-5.30); REDCELL DISTRIBUTION WIDTH-CV 14.7 % (11.5-14.5)
[2020-02-17 06:06] LABS: CALCIUM 7.6 mg/dL (8.4-10.2); CREATININE, serum 0.51 (0.52-1.25); MAGNESIUM 2.7 mg/dL (1.6-2.3); POTASSIUM 4.2 mmol/L (3.4-5.0)
[2020-02-17 06:17] LABS: HEMATOCRIT 35.4 % (37.0-47.0)
--- NOTE | 2020-02-17 07:11 | NUR ---
Report received from YAIMA Espinal. Patient is resting in bed and is alert. Call light is within reach. Will continue to monitor patient throughout shift.
--- NOTE | 2020-02-17 20:15 | NUR ---
Assessment complete; Patient opens eyes on command and moves all extremities. Assisted with [facility]. Will continue to monitor.
[2020-02-18] VITALS (841 sets, daily range): BP systolic 113–152; BP diastolic 61–79; PULSE 66–98; TEMP 97.6–99.1; O2SAT 80–100
[2020-02-18 05:10] LABS: ARTERIAL BLD GAS O2 SATURATION 93.3 % (92-100); ARTERIAL BLD GAS TCO2 CT 24.4; ARTERIAL BLOOD GAS BASE EXCESS -1.6 (-2-2); ARTERIAL BLOOD GAS HCO3 23.2 meq/L (22-26); ARTERIAL BLOOD GAS PCO2 39.7 mmHg (35-45); ARTERIAL BLOOD GAS PO2 66.9 mmHg (80-100); ARTERIAL BLOOD GAS pH 7.39 (7.35-7.45)
--- NOTE | 2020-02-18 05:54 | NUR ---
CPAP TRIAL STARTED ON PT, RN NOTIFIED.
--- NOTE | 2020-02-18 06:05 | NUR ---
Sedation decreased for weaning trial. WIll continue to monitor.
[2020-02-18 06:09] LABS: HEMOGLOBIN 11.4 g/dl (12.5-16.0); MEAN CELL VOLUME 96 fl (80.0-100.0); MEAN CORPUSCULAR HEMOGLOBIN 31 pg (27.0-31.0); MEAN CORPUSCULAR HGB CONC 33 g/dl (33.0-37.0); MEAN PLATELET VOLUME 10.8 fl (7.4-10.4); PLATELET COUNT 249 K/mm3 (130-400); RED BLOOD COUNT 3.64 M/mm3 (4.10-5.30); REDCELL DISTRIBUTION WIDTH-CV 14.9 % (11.5-14.5)
[2020-02-18 06:13] LABS: HEMATOCRIT 35.1 % (37.0-47.0)
[2020-02-18 06:21] LABS: ALBUMIN 2.9 gm/dL (3.5-5.0); BILIRUBIN,TOTAL 0.4 mg/dL (0.0-1.0); CREATININE, serum 0.48 (0.52-1.25); MAGNESIUM 2.4 mg/dL (1.6-2.3); TOTAL PROTEIN 5.9 gm/dL (6.4-8.2)
[2020-02-18 06:59] LABS: LYMPHOCYTE 12 % (20.0-51.0); METAMYELOCYTE 2 % (0-0); NEUTROPHILS 84 % (42.0-75.2)
[2020-02-18 07:00] LABS: PLATELET ESTIMATE NORMAL (NORMAL)
--- NOTE | 2020-02-18 13:54 | NUR ---
The patient remains on mechanical vent. The patient is to undergo a repeat CT scan of chest today. SW to continue to follow.
--- NOTE | 2020-02-18 19:40 | NUR ---
Bedside report received from YAIMA Graham and YAIMA Bond. All lines, tubes, and medications confirmed. Transfer of care at this time.
--- NOTE | 2020-02-18 22:00 | NUR ---
Patient has had a medium mucus stool. Patient given full bed bath with bedding change. Patient's sedation increased as she is very restless. Attempted to calm verbally, but patient has no interest and ignores staff. She has been refusing oral care. Will continue to monitor. Call light within reach.
[2020-02-19] VITALS (1184 sets, daily range): BP systolic 112–150; BP diastolic 60–80; PULSE 56–112; TEMP 97.6–99.2; O2SAT 54–100
--- NOTE | 2020-02-19 03:28 | NUR ---
PT REFUSING TO HAVE ORAL CARE DONE, CLOSES MOUTH CLOSED AND WILL RAISE HAD A GESTURE TO STOP DOING ORAL CARE. PT IS IN NO DISTRESS AT THIS TIME. WILL CONTINUE TO MONITOR AND ASSESS.
--- NOTE | 2020-02-19 05:00 | NUR ---
Patient placed on sedation vacation. Propofol and fentanyl decreased. Will continue to monitor closely as patient has been reaching for her ET tube when awake.
[2020-02-19 05:35] LABS: ARTERIAL BLD GAS O2 SATURATION 94.5 % (92-100); ARTERIAL BLD GAS TCO2 CT 23.6; ARTERIAL BLOOD GAS BASE EXCESS -1.8 (-2-2); ARTERIAL BLOOD GAS HCO3 22.5 meq/L (22-26); ARTERIAL BLOOD GAS PO2 73.1 mmHg (80-100)
[2020-02-19 05:44] LABS: BASO % 0.3 % (0.0-2.0); EOS # 0.3 (0.0-0.7); EOS % 2.3 % (0-4.0); GRAN # 8.5 (1.4-6.5); GRAN % 74.3 % (42.2-75.2); HEMOGLOBIN 11.6 g/dl (12.5-16.0); LYMPH # 1.8 (1.2-3.4); LYMPH % 15.4 % (20.0-51.0); MEAN CELL VOLUME 96 fl (80.0-100.0); MEAN CORPUSCULAR HEMOGLOBIN 32 pg (27.0-31.0); MEAN CORPUSCULAR HGB CONC 33 g/dl (33.0-37.0); MEAN PLATELET VOLUME 10.6 fl (7.4-10.4); MONO # 0.7 (0.1-0.6); MONO % 5.9 % (1.7-9.3); PLATELET COUNT 267 K/mm3 (130-400); RED BLOOD COUNT 3.67 M/mm3 (4.10-5.30); REDCELL DISTRIBUTION WIDTH-CV 14.7 % (11.5-14.5)
[2020-02-19 05:45] LABS: HEMATOCRIT 35.3 % (37.0-47.0)
--- NOTE | 2020-02-19 06:42 | NUR ---
PT ON WEANING TRIAL MANUEL WELL WITH NO DISTRESS NOTED AT THIS TIME.
--- NOTE | 2020-02-19 07:00 | NUR ---
BEDSIDE REPORT RECEIVED FROM YAIMA VERDIN. PATIENT ON SPONTANEOUS WEANING TRIAL. DR. AVILA ON UNIT. ALL VENT SETTINGS, LINES, TUBES ASSESSED AND REVIEWED.
--- NOTE | 2020-02-19 07:35 | NUR ---
Bedside report given to YAIMA Mott. All lines, tubes, and medications confirmed. Transfer of care at this time.
[2020-02-19 08:07] LABS: BILIRUBIN,TOTAL 0.5 mg/dL (0.0-1.0); CALCIUM 8.5 mg/dL (8.4-10.2); CREATININE, serum 0.51 (0.52-1.25); MAGNESIUM 2.3 mg/dL (1.6-2.3); PHOSPHOROUS 2.8 mg/dL (2.5-4.5); TOTAL PROTEIN 6.1 gm/dL (6.4-8.2)
--- NOTE | 2020-02-19 08:38 | NUR ---
PT EXTUBATED PER DR. AVILA. PT PLACED ON 40L 50% AIRVO2 HHFNC. SPO2 94% HR 103 RR 27. NO STRIDOR NOTED. VENT LEFT IN ROOM ON STANDBY PER DR. AVILA
--- NOTE | 2020-02-19 09:18 | NUR ---
Patient extubated at 0838. Immediately after extubation, patient placed on AirVo by CRO Patience. Patient very emotional and sobbing continuously. She is give much emotional support with no success. Dr. Arias and Dr. Arora informed of my inability to get the patient to calm down. Haldol order received. Patient continues to be emotional and rolling around the bed, repositioning herself frequently. I ask her if she is hurting. She shakes her head "no." She does not respond in any other way when i ask her questions. She just continues to cry. Will continue to monitor.
--- NOTE | 2020-02-19 10:00 | NUR ---
PATIENT REINTUBATED AFTER DR. AVILA CALLS , SHERRIE, TO DISCUSS HOW PATIENT IS DOING AFTER EXTUBATION. DR. AVILA MAKES DECISION WITH TO REINTUBATE THE PATIENT. PATIENT IS REINTUBATED AT 0956 WITH 7.5 TUBE 23 AND TEETH, SAME VENT SETTINGS PRIOR TO INITIAL EXTUBATION. SEDATION GIVEN DURING INTUBATION WAS 100 TOTAL PROPOFOL, 60 MG SUCC, AND 10 MG VEC. CHEST XR CONFIRMS TUBE PLACEMENT. DR. AVILA GIVES ADDITIONAL VENT AND RESTRAINT ORDERS. SEE CHART.
--- NOTE | 2020-02-19 10:40 | NUR ---
PICC intact right upper arm. With sterile technique right upper arm PICC dressing change done with insertion site cleansed with ChloraPrep 1, chlorhexidine impregnated disc applied, skin prep, StatLock, and Tegaderm applied. No signs or symptoms of IV complications noted. Arm wrapped with Donell to protect catheter.
[2020-02-19 13:50] LABS: ARTERIAL BLD GAS O2 SATURATION 97.6 % (92-100); ARTERIAL BLD GAS TCO2 CT 28.8; ARTERIAL BLOOD GAS BASE EXCESS 3.3 (-2-2); ARTERIAL BLOOD GAS HCO3 27.5 meq/L (22-26); ARTERIAL BLOOD GAS PCO2 40.5 mmHg (35-45); ARTERIAL BLOOD GAS PO2 98.2 mmHg (80-100); ARTERIAL BLOOD GAS pH 7.45 (7.35-7.45)
--- NOTE | 2020-02-19 14:00 | NUR ---
PATIENT DOING WELL ON VENT. SHE MAINTAINS GOOD SPO2 AND VSS. UPDATES GIVEN TO , SHERRIE AND DAUGHTER VIA PHONE. VIDEO CALL OPTION GIVEN TO FAMILY, BUT THEY ARE UNABLE TO VIDEO CALL AT THIS TIME.
[2020-02-19 14:59] LABS: ANA SCREEN with REFLEX Negative (Negative)
--- NOTE | 2020-02-19 19:00 | NUR ---
BEDSIDE REPORT GIVEN TO YAIMA VERDIN. PATIENT CONTINUES TO DO WELL ON VENT. CARE TURNED OVER AT THIS TIME.
--- NOTE | 2020-02-19 19:15 | NUR ---
Bedside report received from YAIMA Mott. All lines, tubes, and medications confirmed. Transfer of care at this time.
[2020-02-20] VITALS (996 sets, daily range): BP systolic 101–138; BP diastolic 56–78; PULSE 53–100; TEMP 97.5–98.9; O2SAT 88–100
--- NOTE | 2020-02-20 05:00 | NUR ---
Patient is resting comfortably on the vent. No acute changes throughout the night. Patient does wake up and follow commands. She moves herself in the bed on current sedation. Patient's eyes open spontaneously and to any noise in the room. Sedation vacation not performed as patient is responding appropriately. Patient is not showing any signs of pain or distress. Will continue to monitor. Call light within reach.
[2020-02-20 05:03] LABS: ARTERIAL BLD GAS O2 SATURATION 98.5 % (92-100); ARTERIAL BLD GAS TCO2 CT 26.5; ARTERIAL BLOOD GAS BASE EXCESS 0.9 (-2-2); ARTERIAL BLOOD GAS HCO3 25.3 meq/L (22-26); ARTERIAL BLOOD GAS PCO2 39.6 mmHg (35-45); ARTERIAL BLOOD GAS pH 7.42 (7.35-7.45)
[2020-02-20 05:04] LABS: ARTERIAL BLOOD GAS PO2 148.2 mmHg (80-100)
[2020-02-20 05:11] LABS: BASO % 0.1 % (0.0-2.0); EOS # 0.1 (0.0-0.7); EOS % 0.8 % (0-4.0); GRAN # 11.3 (1.4-6.5); GRAN % 78.6 % (42.2-75.2); HEMATOCRIT 37.4 % (37.0-47.0); HEMOGLOBIN 12.3 g/dl (12.5-16.0); LYMPH # 2.1 (1.2-3.4); LYMPH % 14.5 % (20.0-51.0); MEAN CELL VOLUME 95 fl (80.0-100.0); MEAN CORPUSCULAR HEMOGLOBIN 31 pg (27.0-31.0); MEAN CORPUSCULAR HGB CONC 33 g/dl (33.0-37.0); MEAN PLATELET VOLUME 10.5 fl (7.4-10.4); MONO # 0.7 (0.1-0.6); MONO % 4.7 % (1.7-9.3); PLATELET COUNT 312 K/mm3 (130-400); RED BLOOD COUNT 3.93 M/mm3 (4.10-5.30); REDCELL DISTRIBUTION WIDTH-CV 14.6 % (11.5-14.5)
[2020-02-20 05:26] LABS: CALCIUM 8.5 mg/dL (8.4-10.2); CREATININE, serum 0.46 (0.52-1.25); MAGNESIUM 2.3 mg/dL (1.6-2.3); PHOSPHOROUS 3.6 mg/dL (2.5-4.5); POTASSIUM 3.8 mmol/L (3.4-5.0)
--- NOTE | 2020-02-20 07:00 | NUR ---
Bedside report recieved from Meenakshi ERWIN. Lines and medications verified. Patient restless in bed but settles easily with verbal cues.
--- NOTE | 2020-02-20 07:03 | NUR ---
PT WAS REINTUBATED AND HAS A PEEP OF 10. THEREFORE PT DOES NOT QUALIFY FOR A WEANING TRIAL. PT IS ON DOCUMENTED SETTINGS MANUEL WELL WITH NO DISTRESS NOTED AT THIS TIME.
--- NOTE | 2020-02-20 07:33 | NUR ---
Bedside report given to YAIMA Bond. All lines, tubes, and medications confirmed. Transfer of care at this time.
--- NOTE | 2020-02-20 17:11 | NUR ---
Sedation vacation not done at this time due to patient being restless and needing increased medications doses recently.
[2020-02-20 17:31] LABS: ANGIOTENSIN CONVERTING ENZYME 42 U/L (16 - 85)
--- NOTE | 2020-02-20 17:40 | NUR ---
Return call made to , Kun, no answer at this time. Message left for return call.
--- NOTE | 2020-02-20 18:25 | NUR ---
Patient less restless at this time, sleeps quietly in bed. Fentanyl decreased and will monitor for need to decrease Propofol as well.
--- NOTE | 2020-02-20 19:18 | NUR ---
Bedside report given to Fidencio ERWIN.
--- NOTE | 2020-02-20 23:02 | NUR ---
PT RESTING IN BED, DOES NOT APPEAR TO BE IN ANY PAIN AT THIS TIME, PT CLEANED AND LINEN CHANGED AT START OF SHIFT PT HAD 1 MEDIUM LOOSE BROWN STOOL. MÉNDEZ CARE DONE AT THAT TIME. PT REMAINS VENT ASSISTED WITH PROP AND FENT FOR SEDATION AND PAIN. RESTAINTS REMAIN IN PLACE, AND PT MAINTAINS MÉNDEZ FOR ACCURATE UO. VSS AT THIS TIME. WILL CONTINUE TO MONITOR PT STATUS AND UPDATE PROVIDERS NEEDED.
[2020-02-21] VITALS (778 sets, daily range): BP systolic 83–140; BP diastolic 47–73; PULSE 50–88; TEMP 97.9–98.8; O2SAT 88–100
--- NOTE | 2020-02-21 05:16 | NUR ---
PT SEDATION DECREASED FOR AM SEDATION VACATION, PT EXTREMELY AGITATED ATTEMPING TO GET OUT OF BED, PULL MÉNDEZ, AND PULL ETT. SEDATION INCREASED, TO ACHIEVED ORDERED RASS. WILL PASS ON IN REPORT AND CONTINUE TO MONITOR.
[2020-02-21 05:34] LABS: ARTERIAL BLD GAS O2 SATURATION 94.8 % (92-100); ARTERIAL BLD GAS TCO2 CT 27.5; ARTERIAL BLOOD GAS BASE EXCESS 0.9 (-2-2); ARTERIAL BLOOD GAS HCO3 26.2 meq/L (22-26); ARTERIAL BLOOD GAS PO2 77.6 mmHg (80-100); ARTERIAL BLOOD GAS pH 7.39 (7.35-7.45)
--- NOTE | 2020-02-21 06:00 | NUR ---
PT DOES NOT QUALIFY FOR TRIAL, RN NOTIFIED.
[2020-02-21 06:21] LABS: BASO % 0.1 % (0.0-2.0); EOS # 0.2 (0.0-0.7); EOS % 1.3 % (0-4.0); GRAN % 78.3 % (42.2-75.2); HEMOGLOBIN 11.7 g/dl (12.5-16.0); LYMPH # 1.8 (1.2-3.4); LYMPH % 12.7 % (20.0-51.0); MEAN CELL VOLUME 96 fl (80.0-100.0); MEAN CORPUSCULAR HEMOGLOBIN 31 pg (27.0-31.0); MEAN CORPUSCULAR HGB CONC 33 g/dl (33.0-37.0); MEAN PLATELET VOLUME 10.6 fl (7.4-10.4); MONO # 0.9 (0.1-0.6); MONO % 6.1 % (1.7-9.3); PLATELET COUNT 302 K/mm3 (130-400); RED BLOOD COUNT 3.73 M/mm3 (4.10-5.30); REDCELL DISTRIBUTION WIDTH-CV 14.7 % (11.5-14.5)
[2020-02-21 06:24] LABS: HEMATOCRIT 35.8 % (37.0-47.0)
[2020-02-21 06:39] LABS: CALCIUM 8.5 mg/dL (8.4-10.2); CREATININE, serum 0.55 (0.52-1.25); MAGNESIUM 2.3 mg/dL (1.6-2.3); PHOSPHOROUS 3.1 mg/dL (2.5-4.5)
--- NOTE | 2020-02-21 07:00 | NUR ---
BEDSIDE REPORT RECEIVED FROM YAIMA SHAH
[2020-02-21 11:28] LABS: ALDOLASE 10.5 U/L (<7.7)
--- NOTE | 2020-02-21 15:00 | NUR ---
ARRANGE FAMILY MEETING WITH DR. DIAZ TOMORROW AT 10 AM VIA VIDEO CALL.
--- NOTE | 2020-02-21 19:00 | NUR ---
BEDSIDE REPORT GIVEN TO YAIMA MORALES
[2020-02-22] VITALS (1287 sets, daily range): BP systolic 101–121; BP diastolic 56–62; PULSE 59–81; TEMP 98.4–99.1; O2SAT 83–100
[2020-02-22 05:04] LABS: ARTERIAL BLD GAS O2 SATURATION 98.6 % (92-100); ARTERIAL BLD GAS TCO2 CT 25.3; ARTERIAL BLOOD GAS BASE EXCESS -0.3 (-2-2); ARTERIAL BLOOD GAS HCO3 24.1 meq/L (22-26); ARTERIAL BLOOD GAS PCO2 38.5 mmHg (35-45); ARTERIAL BLOOD GAS pH 7.41 (7.35-7.45)
[2020-02-22 05:05] LABS: ARTERIAL BLOOD GAS PO2 143.5 mmHg (80-100)
[2020-02-22 05:11] LABS: BASO % 0.1 % (0.0-2.0); EOS % 0.1 % (0-4.0); GRAN # 9.6 (1.4-6.5); GRAN % 81.1 % (42.2-75.2); HEMOGLOBIN 11.2 g/dl (12.5-16.0); LYMPH # 1.5 (1.2-3.4); LYMPH % 12.5 % (20.0-51.0); MEAN CELL VOLUME 96 fl (80.0-100.0); MEAN CORPUSCULAR HEMOGLOBIN 32 pg (27.0-31.0); MEAN CORPUSCULAR HGB CONC 33 g/dl (33.0-37.0); MEAN PLATELET VOLUME 10.6 fl (7.4-10.4); MONO # 0.6 (0.1-0.6); MONO % 5.3 % (1.7-9.3); PLATELET COUNT 298 K/mm3 (130-400); REDCELL DISTRIBUTION WIDTH-CV 15.2 % (11.5-14.5)
[2020-02-22 05:12] LABS: HEMATOCRIT 33.7 % (37.0-47.0)
[2020-02-22 05:16] LABS: CALCIUM 8.4 mg/dL (8.4-10.2); CREATININE, serum 0.46 (0.52-1.25); MAGNESIUM 2.4 mg/dL (1.6-2.3); PHOSPHOROUS 3.3 mg/dL (2.5-4.5); POTASSIUM 4.2 mmol/L (3.4-5.0)
--- NOTE | 2020-02-22 05:33 | NUR ---
PT PUT ON MORNING TRIAL, RN HAS BEEN NOTIFIED.
--- NOTE | 2020-02-22 07:00 | NUR ---
BEDSIDE REPORT RECEIVED FROM YAIMA MORALES
--- NOTE | 2020-02-22 13:00 | NUR ---
VIDEO CALL HAD WITH DR. GOETZ AND AND DAUGHTER. AFTER DISCUSSING THE PATIENT'S SITUATION, RECCOMMENDED PLAN OF CARE, AND IMAGING RESULTS. THE REQUESTS A TRANSFER TO [facility] FOR FURTHER WORK UP. DR. DOHERTY ON UNIT AT THE TIME AND STATES THAT HE WILL CONTACT TO SEE IF THEY WILL TAKE THE PATIENT
--- NOTE | 2020-02-22 17:00 | NUR ---
NOTIFIED BY DR. DOHERTY THAT [facility] IS UNABLE TO ACCEPT THE PATIENT TODAY AND WILL TRY AGAIN TOMORROW. UPDATE GIVEN TO VIA PHONE CALL. HE VERBALIZES UNDERSTANDING.
--- NOTE | 2020-02-22 19:20 | NUR ---
REPORT GIVEN TO YAIMA MORALES
--- NOTE | 2020-02-22 19:30 | NUR ---
Patient assessment completed and charted at this time, please see documentation for details. Patient resting in bed, tolerating ventilator well at this time. No family present, and no phone calls received. Will continue to monitor and assess.
[2020-02-23] VITALS (1025 sets, daily range): BP systolic 105–142; BP diastolic 55–79; PULSE 61–75; TEMP 97.8–98.7; O2SAT 87–100
[2020-02-23 04:27] LABS: BASO % 0.1 % (0.0-2.0); EOS % 0.1 % (0-4.0); GRAN # 10.2 (1.4-6.5); GRAN % 66.4 % (42.2-75.2); HEMOGLOBIN 11.2 g/dl (12.5-16.0); LYMPH # 3.8 (1.2-3.4); LYMPH % 24.8 % (20.0-51.0); MEAN CELL VOLUME 98 fl (80.0-100.0); MEAN CORPUSCULAR HEMOGLOBIN 32 pg (27.0-31.0); MEAN CORPUSCULAR HGB CONC 32 g/dl (33.0-37.0); MEAN PLATELET VOLUME 10.6 fl (7.4-10.4); MONO # 1.2 (0.1-0.6); MONO % 7.8 % (1.7-9.3); PLATELET COUNT 287 K/mm3 (130-400); RED BLOOD COUNT 3.55 M/mm3 (4.10-5.30); REDCELL DISTRIBUTION WIDTH-CV 15.2 % (11.5-14.5)
[2020-02-23 04:28] LABS: HEMATOCRIT 34.6 % (37.0-47.0)
[2020-02-23 04:37] LABS: ALBUMIN 3.2 gm/dL (3.5-5.0); BILIRUBIN,TOTAL 0.5 mg/dL (0.0-1.0); CALCIUM 8.4 mg/dL (8.4-10.2); CREATININE, serum 0.46 (0.52-1.25); MAGNESIUM 2.4 mg/dL (1.6-2.3); PHOSPHOROUS 3.3 mg/dL (2.5-4.5); POTASSIUM 3.7 mmol/L (3.4-5.0); TOTAL PROTEIN 6.4 gm/dL (6.4-8.2)
[2020-02-23 04:44] LABS: PRE ALBUMIN 29.6 mg/dL (17.6-36.0)
[2020-02-23 05:07] LABS: ARTERIAL BLD GAS O2 SATURATION 96.1 % (92-100); ARTERIAL BLD GAS TCO2 CT 29.2; ARTERIAL BLOOD GAS BASE EXCESS 3.3 (-2-2); ARTERIAL BLOOD GAS HCO3 27.9 meq/L (22-26); ARTERIAL BLOOD GAS PCO2 42.5 mmHg (35-45); ARTERIAL BLOOD GAS PO2 78.3 mmHg (80-100); ARTERIAL BLOOD GAS pH 7.44 (7.35-7.45)
--- NOTE | 2020-02-23 05:39 | NUR ---
PT DOES NOT QUALIFY FOR AM TRIAL.
--- NOTE | 2020-02-23 07:15 | NUR ---
Report received from YAIMA Holloway.
--- NOTE | 2020-02-23 09:45 | NUR ---
Dr Infante and Dr Leonardo both at bedside to see pt. Dr Leonardo notified pt's daughter, Bailee called to check what time for family conference today.
--- NOTE | 2020-02-23 10:15 | NUR ---
Nurse called pt's dtr Bailee and updated on pt status. Waiting to see if pt is accepted for transfer to today. Pt's dtr verbalized understanding.
--- NOTE | 2020-02-23 11:06 | NUR ---
RAUL received a phone call from Penelope at the [facility]. The patient's family is requesting transfer to [facility] and the hospitalist has reached out to [facility] for the transfer. Penelope requested the patient's records and facesheet to start the process. RAUL faxed Peneloep that information. RAUL to continue to follow. Penelope: amy#[phone].
--- NOTE | 2020-02-23 13:40 | NUR ---
Penelope, from , called to state pt was accepted for transfer. Pt's room number will be #[id number]. Number to call for report is #[phone].
--- NOTE | 2020-02-23 13:47 | NUR ---
Nurse called pt's dtr Bailee. Family updated pt will transfer to today. Room number given to Bailee. Pt's family will come in to see pt before transfer. Dr Infante here and updated on pt accepted to . Dr Infante will notify front of house manager. ICU program production specialist notified of [facility] transfer today.
--- NOTE | 2020-02-23 14:40 | NUR ---
Pt's , son and dtr at bedside to see pt. Pt more restless once nurse told her family will be coming in to see her. Pt awake, moves extrem x4. Bilat soft wrist restraints remain on. Pt's family updated on pt status. Pt's family given pt's belongings and will take them home.
--- NOTE | 2020-02-23 15:10 | NUR ---
Pt's family went home. Pt resting comfortably in bed. Bilat soft wrist restraints remain on. VSS. Remains on fentanyl and propofol gtt for sedation.
--- NOTE | 2020-02-23 16:23 | NUR ---
Penelope, at the [facility], reports that they are able to accept the patient and that she has already notified the patient's RN of this. The accepting physician is Dr. Woodrow Estrella. SW notified Pipe Finishing Supervisor. The patient is to transfer to [facility] in [place], [place] today, 02/22. No additional needs at this time.
--- NOTE | 2020-02-23 17:23 | NUR ---
Phone report given to SEBASTIAN Barbour Rn. Provided pt's family's contact info. Family requested to be contacted when pt arrives to unit. Pt's room at will be #[id number].
--- NOTE | 2020-02-23 17:34 | NUR ---
TF on hold at this time for transfer to at 1830.
--- NOTE | 2020-02-23 19:27 | NUR ---
[facility] in room to transfer pt to . Report given on pt status. Pt tolerated transfer to [facility] well. Pt alert, moves all extrem. Remains on propofol and fentanyl gtts. No changes with ventilator settings. ETT suctioned with minimal white secretions. Pt left unit with [facility] at 1922. Pt's dtrBailee called and updated. nurse notified of pt leaving unit at this time.
== END 2020-02-23 19:25 | disposition short-term general hospital (02) | DRG 853 ==
LOC: COL.ER 19:08 → EU 22:16 → MEDICAL 02-12 11:31 → ICU 02-13 09:22 → MEDICAL 02-13 09:22 → ICU 02-13 09:34
PROVIDERS: Emergency Medicine; Internal Medicine Pulmonary Disease; Nurse Practitioner Family; Student in an Organized Health Care Education/Training Program; ADMIT Internal Medicine
PROC: 02HV33Z Insertion of Infusion Device into Superior Vena Cava, Percutaneous Approach (ICD-10-PCS; 2020-02-13)
PROC: 5A1955Z Respiratory Ventilation, Greater than 96 Consecutive Hours (ICD-10-PCS; 2020-02-14)
PROC: 0BH17EZ Insertion of Endotracheal Airway into Trachea, Via Natural or Artificial Opening (ICD-10-PCS; 2020-02-14)
PROC: 0WCQ8ZZ Extirpation of Matter from Respiratory Tract, Via Natural or Artificial Opening Endoscopic (ICD-10-PCS; principal; 2020-02-16)
PROC: 0B9J8ZX Drainage of Left Lower Lung Lobe, Via Natural or Artificial Opening Endoscopic, Diagnostic (ICD-10-PCS; 2020-02-16)
PROC: 0B958ZX Drainage of Right Middle Lobe Bronchus, Via Natural or Artificial Opening Endoscopic, Diagnostic (ICD-10-PCS; 2020-02-16)
PROC: 0B9F8ZX Drainage of Right Lower Lung Lobe, Via Natural or Artificial Opening Endoscopic, Diagnostic (ICD-10-PCS; 2020-02-16)
PROC: 0BH18EZ Insertion of Endotracheal Airway into Trachea, Via Natural or Artificial Opening Endoscopic (ICD-10-PCS; 2020-02-19)
PROC: 5A1945Z Respiratory Ventilation, 24-96 Consecutive Hours (ICD-10-PCS; 2020-02-19)
DX: A41.9 Sepsis, unspecified organism (principal); J96.21 Acute and chronic respiratory failure with hypoxia; J84.9 Interstitial pulmonary disease, unspecified; N39.0 Urinary tract infection, site not specified; K50.90 Crohn's disease, unspecified, without complications; E46 Unspecified protein-calorie malnutrition; Z20.828 Contact with and (suspected) exposure to other viral communicable diseases; Z87.891 Personal history of nicotine dependence; E87.6 Hypokalemia; F31.9 Bipolar disorder, unspecified; R53.81 Other malaise; Z88.5 Allergy status to narcotic agent; Z88.0 Allergy status to penicillin; Z88.8 Allergy status to other drugs, medicaments and biological substances; J43.9 Emphysema, unspecified
CPT/HCPCS: 99223-AI; 99232-AI; 99233-AI; 99239; C1751; J0330; J0692; J0696; J1630; J1650; J1885; J1940; J2175; J2405; J2550; J2704; J2930; J3010; J3370; J3480; J7030; J7050; J7120; Q9967

== ENCOUNTER → 2020-04-28 | Outpatient (CLI) | payer MEDICARE ==
[~2020-04-28] MED LIST changes: +OMEGA-3 1000 MG1 CAP PO; +VALIUM 10MG10 MG/TAB PO; +VITAMIN D31000 I1 PO
== END ==
LOC: BHSO 12:58
DX: F43.10 Post-traumatic stress disorder, unspecified (principal)
CPT/HCPCS: G0463

== ENCOUNTER → 2020-05-19 | Outpatient (CLI) | payer MEDICARE ==
[2020-05-19 08:49] LABS: ARTERIAL BLD GAS TCO2 CT 25.9; ARTERIAL BLOOD GAS HCO3 24.7 meq/L (22-26); ARTERIAL BLOOD GAS PCO2 40.5 mmHg (35-45); ARTERIAL BLOOD GAS PO2 59.9 mmHg (80-100)
== END ==
LOC: COL.PUL 08:12
PROVIDERS: Internal Medicine Pulmonary Disease
DX: R06.02 Shortness of breath (principal)

== ENCOUNTER 2020-06-03 13:08 | Outpatient (CLI) | payer MEDICARE ==
[~2020-06-03] VITALS: Ht 157.5 cm; Wt 71.3 kg
[2020-06-03 13:50] VITALS: BP 112/62; PULSE 66; TEMP 97.4
[2020-06-04] MEDS ORDERED: PROZAC40 MG PO (11:09)
[2020-06-04] MEDS ORDERED: CENTRUM SILVER1 TAB PO (11:10)
[2020-06-04] MEDS ORDERED: EPA FISH OIL1 SGL PO (11:10)
[2020-06-04] MEDS ORDERED: B-12 INJ (11:11)
[2020-06-04] MEDS ORDERED: VALIUM 5MG T5 MG/TAB PO (11:12)
[2020-06-04] MEDS ORDERED: SEROQUEL300 MG PO (11:12)
[2020-06-04] MEDS ORDERED: 00186-0372-20 IH (11:14)
[2020-06-04] MEDS ORDERED: HUMIRA PEN40 MG/0.4 SQ (11:14)
[2020-06-04] MEDS ORDERED: PRILOSEC 20MG20 MG PO (11:15)
[2020-06-04] MEDS ORDERED: PROAIR HFA0.09 MG/AC IH (11:15)
[2020-06-04] MEDS ORDERED: SPIRIVA RE2.5 MCG/Ac IH (11:15)
[2020-06-04] MEDS ORDERED: ONE DAILY MULTI1 TA1 PO (11:16)
[2020-06-04] MEDS ORDERED: MAGNESIUM250 M1 PO (11:16)
[2020-06-04] MEDS ORDERED: VITAMIN D31000 I1 PO (11:17)
[2020-06-04] MEDS ORDERED: ATHLETE'S FOOT1% TP (11:17)
== END 2020-06-03 14:20 | disposition home or self-care (01) ==
LOC: EUO 13:08
DX: M81.0 Age-related osteoporosis without current pathological fracture (principal)
CPT/HCPCS: J3489

== ENCOUNTER 2020-06-04 10:27 | Day surgery (SDC) | payer MEDICARE, OTHER ==
[~2020-06-04] VITALS: Ht 157.5 cm; Wt 71.3 kg
[2020-06-04] MEDS ORDERED: PROZAC40 MG PO (11:09)
[2020-06-04] MEDS ORDERED: EPA FISH OIL1 SGL PO (11:10)
[2020-06-04] MEDS ORDERED: CENTRUM SILVER1 TAB PO (11:10)
[2020-06-04] MEDS ORDERED: B-12 INJ (11:11)
[2020-06-04] MEDS ORDERED: VALIUM 5MG T5 MG/TAB PO (11:12)
[2020-06-04] MEDS ORDERED: SEROQUEL300 MG PO (11:12)
[2020-06-04] MEDS ORDERED: 00186-0372-20 IH (11:14)
[2020-06-04] MEDS ORDERED: HUMIRA PEN40 MG/0.4 SQ (11:14)
[2020-06-04] MEDS ORDERED: PROAIR HFA0.09 MG/AC IH (11:15)
[2020-06-04] MEDS ORDERED: PRILOSEC 20MG20 MG PO (11:15)
[2020-06-04] MEDS ORDERED: SPIRIVA RE2.5 MCG/Ac IH (11:15)
[2020-06-04] MEDS ORDERED: MAGNESIUM250 M1 PO (11:16)
[2020-06-04] MEDS ORDERED: ONE DAILY MULTI1 TA1 PO (11:16)
[2020-06-04 11:17] VITALS: BP 126/68; PULSE 89; TEMP 97.8
[2020-06-04] MEDS ORDERED: ATHLETE'S FOOT1% TP (11:17)
[2020-06-04] MEDS ORDERED: VITAMIN D31000 I1 PO (11:17)
[2020-06-04 12:40] VITALS: BP 129/69; PULSE 88; TEMP 97.5
--- NOTE | 2020-06-04 12:40 | NUR ---
Patient brought back to bay 8 via cart. Placed on monitors, vital signs stable. SpO2 93%, baseline for patient. Denies pain or nausea. Ambulated to bathroom with one assist. to pick patient up. Patient requests muffin and soda. Warm blanket provided, call del cid within reach. Will continue to monitor.
[2020-06-04 12:55] VITALS: BP 130/73; PULSE 83
--- NOTE | 2020-06-04 12:55 | NUR ---
Patient tolerating food and drink without difficulty. Vital signs stable. Will continue to monitor.
[2020-06-04 13:10] VITALS: BP 136/64; PULSE 83
--- NOTE | 2020-06-04 13:10 | NUR ---
Patient states she feels ready to go home at this time. called and updated. Will leave to pick patient up. Dr. Rivero at bedside to speak with patient about procedure. IV removed, intact. Patient to get dressed at this time.
--- NOTE | 2020-06-04 13:20 | NUR ---
Discharge instructions reviewed with patient, all questions answered. Brought down to lobby via wheel chair. met at front door. Placed in vehicle. to care for patient at this time. All belongings in hand.
[2020-06-04 13:28] VITALS: BP 129/69; PULSE 87
== END 2020-06-04 13:20 | disposition home or self-care (01) ==
LOC: SDCO 10:27
DX: Z12.11 Encounter for screening for malignant neoplasm of colon (principal); K50.80 Crohn's disease of both small and large intestine without complications; K63.89 Other specified diseases of intestine; F41.9 Anxiety disorder, unspecified; F32.9 Major depressive disorder, single episode, unspecified; K21.9 Gastro-esophageal reflux disease without esophagitis; J44.9 Chronic obstructive pulmonary disease, unspecified; G47.33 Obstructive sleep apnea (adult) (pediatric); G89.29 Other chronic pain; F43.10 Post-traumatic stress disorder, unspecified; M19.90 Unspecified osteoarthritis, unspecified site; Z88.8 Allergy status to other drugs, medicaments and biological substances; Z88.5 Allergy status to narcotic agent; Z88.0 Allergy status to penicillin; Z90.49 Acquired absence of other specified parts of digestive tract; Z90.710 Acquired absence of both cervix and uterus
CPT/HCPCS: J2704; J7030

== ENCOUNTER → 2020-06-24 | Outpatient (CLI) | payer MEDICARE, OTHER ==
[~2020-06-24] MED LIST changes: +00186-0372-20 IH; +ATHLETE'S FOOT1% TP; +B-12 INJ; +CENTRUM SILVER1 TAB PO; +EPA FISH OIL1 SGL PO; +HUMIRA PEN40 MG/0.4 SQ; +MAGNESIUM250 M1 PO; +ONE DAILY MULTI1 TA1 PO
== END ==
LOC: BHSO 10:50
DX: F43.10 Post-traumatic stress disorder, unspecified (principal)
CPT/HCPCS: G0463

== ENCOUNTER 2021-01-06 13:19 | Outpatient (CLI) | payer MEDICARE, OTHER ==
[~2021-01-06] VITALS: Ht 157.5 cm; Wt 66.0 kg
[2021-01-06 13:57] VITALS: BP 122/67; PULSE 89; TEMP 98.4
== END 2021-01-06 20:35 | disposition home or self-care (01) ==
LOC: EUO 13:19
DX: M81.0 Age-related osteoporosis without current pathological fracture (principal)
CPT/HCPCS: J0897

== ENCOUNTER → 2021-02-14 | Outpatient (CLI) | payer MEDICARE, OTHER ==
[~2021-02-14] MED LIST changes: +DEBROX OT; +K-DUR20 MEQ PO; +MEDROL 4MG DOSPA4 MG PO; +REQUIP 1MG T1 MG/TAB PO; +REXULTI1 MG PO; +ROBITUSSIN DM 105 ML PO; +TOPAMAX 25MG25 M1 PO; +ZITHROMAX Z PA250 MG PO
== END ==
LOC: MC.RAD 10:15
DX: Z12.31 Encounter for screening mammogram for malignant neoplasm of breast (principal)

== ENCOUNTER 2021-02-27 11:02 | Observation (INO) | payer MEDICARE, OTHER ==
[~2021-02-27] VITALS: Ht 157.5 cm; Wt 66.6 kg
[~2021-02-27 11:02] MED LIST changes: -DEBROX OT; -K-DUR20 MEQ PO; -MEDROL 4MG DOSPA4 MG PO; -REQUIP 1MG T1 MG/TAB PO; -REXULTI1 MG PO; -ROBITUSSIN DM 105 ML PO; -TOPAMAX 25MG25 M1 PO; -ZITHROMAX Z PA250 MG PO
[2021-02-27 11:41] LABS: BASO # 0.1 (0.0-0.2); BASO % 0.4 % (0.0-2.0); EOS # 0.1 (0.0-0.7); EOS % 0.3 % (0-4.0); GRAN % 76.3 % (42.2-75.2); HEMATOCRIT 41.1 % (37.0-47.0); HEMOGLOBIN 14.2 g/dl (12.5-16.0); LYMPH # 2.7 (1.2-3.4); LYMPH % 14.8 % (20.0-51.0); MEAN CELL VOLUME 96 fl (80.0-100.0); MEAN CORPUSCULAR HEMOGLOBIN 33 pg (27.0-31.0); MEAN CORPUSCULAR HGB CONC 35 g/dl (33.0-37.0); MEAN PLATELET VOLUME 9.9 fl (7.4-10.4); MONO # 1.4 (0.1-0.6); MONO % 7.8 % (1.7-9.3); PLATELET COUNT 247 K/mm3 (130-400); REDCELL DISTRIBUTION WIDTH-CV 12.7 % (11.5-14.5)
[2021-02-27 11:46] LABS: ALANINE AMINOTRANSFERASE 43 U/L (4-34); ALBUMIN 4.3 gm/dL (3.5-5.0); ALKALINE PHOSPHATASE 81 U/L (50-136); ANION GAP 9 mmol/L (7-16); AST,SGOT 40 U/L (15-37); BILIRUBIN,TOTAL 0.3 mg/dL (0.0-1.0); BLOOD UREA NITROGEN 11 mg/dL (7-17); CARBON DIOXIDE 18 mmol/L (22-30); CHLORIDE 105 mmol/L (98-107); CREATININE, serum 0.73 (0.52-1.25); GLUCOSE 113 mg/dL (74-106); LIPASE 115 U/L (23-300); SODIUM 132 mmol/L (137-145)
[2021-02-27 12:00] LABS: TROPONIN-I < 0.012 ng/mL (0.000-0.035)
[2021-02-27 12:10] LABS: PROTHROMBIN TIME 10.6 SECONDS (9.7-12.8)
[2021-02-27 12:13] LABS: PARTIAL THROMBOPLASTIN TIME 26.9 SECONDS (26.0-37.0)
[2021-02-27 12:54] LABS: COLLECTION METHOD CLEAN CATCH
[2021-02-27 13:02] LABS: PH 7 (5-8); SQUAMOUS EPITHELIAL None Seen /hpf; URINE APPEARANCE Clear; URINE BACTERIA None Seen /hpf; URINE BILIRUBIN Negative (NEGATIVE); URINE BLOOD Negative (NEGATIVE); URINE COLOR Yellow; URINE GLUCOSE Negative (NEGATIVE); URINE KETONE Negative (NEGATIVE); URINE LEUKOCYTE ESTERASE Negative (NEGATIVE); URINE NITRATE Negative (NEGATIVE); URINE PROTEIN(semi-quant) Negative (NEGATIVE); URINE RBC 0-2 /hpf; URINE UROBILINOGEN Negative (NEGATIVE)
[2021-02-27] MEDS ORDERED: DEXILANT60 MG PO (18:08)
[2021-02-27] MEDS ORDERED: K-DUR20 MEQ PO (18:08)
[2021-02-27] MEDS ORDERED: REQUIP 1MG T1 MG/TAB PO (18:11)
[2021-02-27] MEDS ORDERED: REXULTI1 MG PO (18:12)
[2021-02-27] MEDS ORDERED: TOPAMAX 25MG25 M1 PO (18:13)
[2021-02-27 18:39] VITALS: BP 128/64; PULSE 81; TEMP 98.6
--- NOTE | 2021-02-27 18:55 | NUR ---
RECEIVED CHANGE OF SHIFT REPORT FROM DAY SHIFT NURSE. PATIENT REPORTING PAIN TO BACK, "ALL OVER.... HURTS WHEN I BREATH" PATIENT STATING SHE IS WANTING MED STRONGER THAN TYLENOL. WHEN ASKED, STATES SHE WEARS OXYGEN AT NIGHT "I WAS TOLD UP TO 4... IF THAT MEANS IN LITERS"
--- NOTE | 2021-02-27 19:14 | NUR ---
Patient admitted to room 346. Report from Yas in [place]. Patient denies nausea. Dinner ordered. Vss on Tele. Patient refuses tylenol, reports that does not relive her pain. I made mary aware. Ivf & antibioitcs ordered. Patient med list updated with the list she provided, but she was not very specific on last times taken. Bedside report to Milly who will resume cars
--- NOTE | 2021-02-27 19:50 | NUR ---
PATIENT AGREED TO TAKE TYLENOL AT THIS TIME, SEE MAR FOR TIME GIVEN, AFTER PATIENT INFORMED OF PROVIDERS RECOMMENDATION TO TRY TYLENOL FIRST PRIOR TO ORDERING ADDITIONAL PAIN MEDS. PATIENT KEPT STATING "I ALREADY KNOW IT'S NOT GOING TO WORK... I MIGHT WELL BE TAKING CANDY".
--- NOTE | 2021-02-27 20:58 | NUR ---
OBSERVED PATIENT RESTING QUIETLY IN BED, BREATHING NONLABORED. PER PCT, PATIENT C/O DIZZINESS WHEN UP WALKING TO BATHROOM.
--- NOTE | 2021-02-27 22:09 | NUR ---
PATIENT REPORTING STILL HAS PAIN. PATIENT STATES SHE DOES NOT WANT TO TAKE ANYMORE PAIN PILL, "I JUST WANT A SHOT SO THAT I CAN SLEEP" STATING THAT SHE IS "GOING TO GET MEAN IF I DON'T GET A SHOT... PAIN PILLS DON'T HELP THE PAIN". INFORMED PROVIDER OF PATIENT'S RESPONSE TO TYLENOL, AND PATIENTS STATEMENTS, WITH RECOMMENDATION THAT ULTRAM WOULD BE ORDERED FOR PATIENT C/O IF PATIENT IS AGREEABLE. INFORMED PATIENT OF OFFER TO HAVE ULTRAM ORDERED BY PROVIDER WITH PATIENT STATING SHE IS MAD AT THE PROVIDER, DEMANDING THAT PROVIDER COME SEE HER, "I JUST WNAT A SHOT SO THAT I CAN SLEEP". THIS NURSE INFORMED TINSMITH APPRENTICE OF PATIENT'S COMPLAINTS WITH TINSMITH APPRENTICE AGREEING TO SEE PATIENT WHEN ABLE. INFORMED PROVIDER OF PATIENT'S WANTING SHOT TO SLEEP/PAIN PILLS DON'T WORK/DEMANDS THAT PROVIDER COME SEE PATIENT/TINSMITH APPRENTICE BEING INFORMED. PROVIDER OFFERED ULTRAM ONLY FOR PAIN, INDICATED FOR APPROPRIATE TREATMENT FOR COPD/VERTIGO, THAT VERTIGO WOULD WORSEN WITH IV NARCOTICS. INFORMED PATIENT OF PROVIDERS RATIONAL FOR ULTRAM/NO IV NARCOTICS WITH PATIENT FINALLY AGREEING TO TAKE ULTRAM. INFORMED PROVIDER OF PATIENT AGREEMENT TO TAKE ULTRAM, REMINDED PATIENT VALIUM IS ORDERED PRN Q6HR AND AGREED TO TAKE VALIUM WITH TRAMADOL, PATIENT ALSO AGREED TO TAKE COUGH MEDICINE WELL. SEE MAR FOR MEDS GIVEN.
--- NOTE | 2021-02-27 22:49 | NUR ---
ASSISTANT PROFESSOR OF ANTHROPOLOGY CONTACTED THIS NURSE FOR UPDATE OF PATIENT'S STATUS/CONCERNS AND INFORMED OF PATIENT TAKING MEDS ORDERED AT THIS TIME.
[2021-02-27 23:28] VITALS: BP 129/64; PULSE 84; TEMP 98.4
--- NOTE | 2021-02-28 00:57 | NUR ---
OBSERVED ON ENTERING ROOM, PATIENT SLEEPING ON RIGHT SIDE/WOKE WHEN STARTED COUGHING. COUGH NONPRODUCTIVE AT THIS TIME. PATIENT STATES "I FEEL BETTER...THE PILLS MUST BE WORKING". PATIENT DENIES ANY ADDITIONAL NEEDS CURRENTLY.
[2021-02-28 04:00] VITALS: BP 132/72; PULSE 85; TEMP 98.6
--- NOTE | 2021-02-28 04:35 | NUR ---
PATIENT SLEEPS, DOES NOT WAKE WHEN ROOM ENTERED BY STAFF AT THIS TIME. BREATHING OBSERVED EVEN AND NONLABORED. OXYGEN PER NC AT THIS TIME.
--- NOTE | 2021-02-28 06:16 | NUR ---
PATIENT SLEEPING, WOKE W/NAME CALLED. PATIENT REPORTS FEELING BETTER, GETTING SLEEP HELPED. TELE IN PLACE, IVF INFUSING WITH NO PROBLEMS. DENIES ANY NEEDS AT THIS TIME.
[2021-02-28 06:39] LABS: BASO % 0.1 % (0.0-2.0); GRAN # 11.6 (1.4-6.5); GRAN % 82.2 % (42.2-75.2); HEMATOCRIT 38.2 % (37.0-47.0); HEMOGLOBIN 13.2 g/dl (12.5-16.0); LYMPH % 14.2 % (20.0-51.0); MEAN CELL VOLUME 97 fl (80.0-100.0); MEAN CORPUSCULAR HEMOGLOBIN 34 pg (27.0-31.0); MEAN CORPUSCULAR HGB CONC 35 g/dl (33.0-37.0); MEAN PLATELET VOLUME 10.6 fl (7.4-10.4); MONO # 0.4 (0.1-0.6); PLATELET COUNT 218 K/mm3 (130-400); RED BLOOD COUNT 3.92 M/mm3 (4.10-5.30)
[2021-02-28 06:48] LABS: CALCIUM 8.5 mg/dL (8.4-10.2); CREATININE, serum 0.61 (0.52-1.25)
--- NOTE | 2021-02-28 06:56 | NUR ---
CHANGE OF SHIFT REPORT GIVEN TO DAY SHIFT NURSE, JESUS ERWIN.
--- NOTE | 2021-02-28 07:00 | NUR ---
Pt resting with eyes closed, even non labored breathing
[2021-02-28 07:37] VITALS: BP 140/68; PULSE 87; TEMP 97.9
--- NOTE | 2021-02-28 08:00 | NUR ---
Pt has breakfast tray, but keeps falling asleep
--- NOTE | 2021-02-28 08:36 | NUR ---
Pt working with therapy at this time
[2021-02-28] MEDS ORDERED: SPIRIVA RE2.5 MCG/Ac IH ×2 (08:49→09:06)
[2021-02-28] MEDS ORDERED: ZITHROMAX Z PA250 MG PO (09:04)
[2021-02-28] MEDS ORDERED: MEDROL 4MG DOSPA4 MG PO (09:04)
[2021-02-28] MEDS ORDERED: PROAIR HFA0.09 MG/AC IH (09:04)
[2021-02-28] MEDS ORDERED: DEBROX OT (09:05)
[2021-02-28] MEDS ORDERED: ROBITUSSIN DM 105 ML PO (09:07)
[2021-02-28] MEDS ORDERED: VALIUM 5MG T5 MG/TAB PO (09:08)
--- NOTE | 2021-02-28 09:33 | NUR ---
Apparel Designer attended clinical rounds with the team and patient to discharge home today. Patient to have follow up with primary care as well as ENT follow up. SW met with patient after rounds to discuss discharge planning. Patient lives in [place] with her , Felipe (ph#[phone]) and sees Dr. Bolivar for primary care. Patient normally has medications delivered to her home from [facility], however will go to [facility] for prescriptions she needs today. Patient does not use any DME and reports she is mostly independent at home and has her to help her if she needs it. Patient does not have DPOA-HC and was not interested in completing DPOA form at this time. Patient worked with PT and their recommendation is to return home. Discharge Plan: Home with .
--- NOTE | 2021-02-28 10:07 | NUR ---
Dr Infante has been in to see patient, orders for dischage wrote. This was discussed with patient. Dr Infante reviewed medications with patient as well as follow up appointments. I reminded the importance of picking up her prescriptions today as they cannot wait for mail order. When I discussed a ride, pt stated that she would have to take a cab because her does not feel like driving today. I asked about a friend picking her up and she stated that she would try a couple. Attempted to call [facility] over the last hour to make her a follow up appointment with no answer, left a voicemail.
--- NOTE | 2021-02-28 10:22 | NUR ---
Initial visit; Patient states she is about to be discharged. Automatic Coin Machine Mechanic wished her well and God's blessings.
--- NOTE | 2021-02-28 10:47 | NUR ---
Reviewed discharge instructions with pt to include follow up appointment and prescriptions. PT request to have a cab called around 1030. Called a cab and requested ride at 1100, which she agreed with. INT removed from left AC.
--- NOTE | 2021-02-28 10:55 | NUR ---
Reminded pt that she needs to get prescriptions today from [facility] and that they were called in. Started ear drops today in right ear and sent with patient. Informed her that she will not need to pick it up
== END 2021-02-28 11:00 | disposition home or self-care (01) ==
LOC: COL.ER 11:02 → SURG 16:56
PROVIDERS: Emergency Medicine; Nurse Practitioner Family; ADMIT Student in an Organized Health Care Education/Training Program
DX: J44.1 Chronic obstructive pulmonary disease with (acute) exacerbation (principal); G25.81 Restless legs syndrome; K50.90 Crohn's disease, unspecified, without complications; K21.9 Gastro-esophageal reflux disease without esophagitis; F41.9 Anxiety disorder, unspecified; F31.9 Bipolar disorder, unspecified; F17.210 Nicotine dependence, cigarettes, uncomplicated; Z20.822 Contact with and (suspected) exposure to COVID-19; Z99.89 Dependence on other enabling machines and devices; Z90.89 Acquired absence of other organs; Z90.710 Acquired absence of both cervix and uterus; Z79.899 Other long term (current) drug therapy
CPT/HCPCS: G0378; J0456; J1650; J2920; J2930; J7030; J7050; Q9967

== ENCOUNTER → 2021-05-18 | Outpatient (CLI) | payer MEDICARE, OTHER ==
[~2021-05-18] MED LIST changes: +DEBROX OT; +K-DUR20 MEQ PO; +MEDROL 4MG DOSPA4 MG PO; +REQUIP 1MG T1 MG/TAB PO; +REXULTI1 MG PO; +ROBITUSSIN DM 105 ML PO; +TOPAMAX 25MG25 M1 PO; +ZITHROMAX Z PA250 MG PO
== END ==
LOC: COL.VAS 13:30
DX: I35.8 Other nonrheumatic aortic valve disorders (principal); I51.7 Cardiomegaly

== ENCOUNTER 2021-07-06 15:00 | Outpatient (CLI) | payer MEDICARE, OTHER ==
[~2021-07-06] VITALS: Ht 157.5 cm; Wt 62.4 kg
[2021-07-06 15:54] VITALS: BP 117/76; PULSE 83; TEMP 99.6
== END 2021-07-06 16:15 | disposition home or self-care (01) ==
LOC: EUO 15:00
DX: M81.0 Age-related osteoporosis without current pathological fracture (principal)
CPT/HCPCS: J0897

== ENCOUNTER → 2021-07-12 | Outpatient (CLI) | payer MEDICARE, OTHER | LOC: COL.RAD 07:30 | DX: Z87.19 Personal history of other diseases of the digestive system (principal) ==

== ENCOUNTER → 2021-07-29 | Outpatient (CLI) | payer MEDICARE, OTHER | LOC: COL.RAD 08:06 | DX: Z01.818 Encounter for other preprocedural examination (principal); Z90.710 Acquired absence of both cervix and uterus; Z90.49 Acquired absence of other specified parts of digestive tract | CPT/HCPCS: Q9967 ==

== ENCOUNTER 2022-02-06 14:57 | Outpatient (CLI) | payer MEDICARE, OTHER ==
[~2022-02-06] VITALS: Ht 157.5 cm; Wt 63.3 kg
[2022-02-06 15:15] VITALS: BP 138/74; PULSE 77; TEMP 98.4
== END 2022-02-06 16:55 | disposition home or self-care (01) ==
LOC: EUO 14:57
DX: M81.0 Age-related osteoporosis without current pathological fracture (principal)
CPT/HCPCS: J0897; J3489

== ENCOUNTER → 2022-03-13 | Outpatient (CLI) | payer MEDICARE, OTHER | LOC: MC.RAD 13:15 | DX: Z12.31 Encounter for screening mammogram for malignant neoplasm of breast (principal); N64.9 Disorder of breast, unspecified ==

== ENCOUNTER → 2022-03-17 | Outpatient (CLI) | payer MEDICARE, OTHER | LOC: MC.RAD 10:53 | DX: N64.9 Disorder of breast, unspecified (principal) ==

== ENCOUNTER 2022-06-16 09:04 | Day surgery (SDC) | payer MEDICARE ==
[~2022-06-16] VITALS: Ht 157.5 cm; Wt 59.9 kg
[2022-06-16] MEDS ORDERED: CYMBALTA 60MG60 MG PO (09:37)
[2022-06-16] MEDS ORDERED: SEROQUEL XR400 M1 PO (09:41)
[2022-06-16 09:45] VITALS: BP 131/85; PULSE 91; TEMP 98
--- NOTE | 2022-06-16 10:28 | NUR ---
Initial visit; Patient thanked Microbiology Technician for offering comfort and prayer prior to her Colonoscopy. Microbiology Technician wished Shelly well and offered God's blessings.
[2022-06-16 11:00] VITALS: BP 136/80; PULSE 83; TEMP 98.1
--- NOTE | 2022-06-16 11:00 | NUR ---
Pt returned to recliner in [facility] via cart. A&O. VSS-see flowsheet. Warm blankets given and call light in reach. Pt given muffin and coffee per request. Denies other needs or concerns at this time.
[2022-06-16 11:15] VITALS: BP 139/80; PULSE 83
--- NOTE | 2022-06-16 11:30 | NUR ---
VS stable-see flowsheet. Dr Salgado in to visit post procedure. IV removed, pressure dressing applied. Tolerated muffin and coffee. DC teaching completed with pt and pts , Kun. After dressing, pt taken via wheelchair to private vehicle for dc home with Kun driving.
== END 2022-06-16 11:30 | disposition home or self-care (01) ==
LOC: SDCO 09:04
DX: K50.80 Crohn's disease of both small and large intestine without complications (principal); F17.210 Nicotine dependence, cigarettes, uncomplicated; J44.9 Chronic obstructive pulmonary disease, unspecified; Z99.81 Dependence on supplemental oxygen; G47.33 Obstructive sleep apnea (adult) (pediatric); Z79.899 Other long term (current) drug therapy
CPT/HCPCS: J7030

== ENCOUNTER → 2023-10-12 | Outpatient (CLI) | payer MEDICARE, OTHER ==
[~2023-10-12] MED LIST changes: +CYMBALTA 60MG60 MG PO; +DALIRESP250 MCG PO; +NATURAL FISH1200 MG PO; +NATURAL POTASS595 MG PO; +PROVIGIL 100MG100 MG PO; +SEROQUEL XR200 MG PO; +VRAYLAR4.5 MG PO
== END ==
LOC: CANSCHCLI → COL.CARD 08:00 → COL.RAD 08:00 → COL.PUL 08:00 → COL.CARD 08:33
DX: J43.9 Emphysema, unspecified (principal); R09.02 Hypoxemia

== ENCOUNTER → 2024-01-24 | Outpatient (CLI) | payer MEDICARE, OTHER | LOC: COL.RAD 13:46 | DX: K76.0 Fatty (change of) liver, not elsewhere classified (principal); K86.89 Other specified diseases of pancreas; K83.8 Other specified diseases of biliary tract ==

== ENCOUNTER 2024-06-06 13:38 | Day surgery (SDC) | payer MEDICARE, OTHER ==
[~2024-06-06] VITALS: Ht 157.5 cm; Wt 63.5 kg
[~2024-06-06 13:38] MED LIST changes: +IRON TABLETS325 MG PO; +LR 1,000 ML IV SCH; +MASON NATURAL2000 IU PO; +Ondansetron 4 MG/2 ML VIAL IV PRN
[2024-06-06 13:46] VITALS: BP 123/94; PULSE 86; TEMP 97.6
[2024-06-06] MEDS ORDERED: VALIUM 10MG10 MG/TAB PO (14:00)
[2024-06-06] MEDS ORDERED: CALCIUM 600600 MG PO (14:04)
[2024-06-06] MEDS ORDERED: FORTEO250 MCG/ML SQ (14:06)
--- NOTE | 2024-06-06 14:25 | NUR ---
The patient ambulated back to [place] independently using a steady gait and appeared to tolerate the activity well. Vital signs obtained. Consent signed. 20G IV started in right hand with one stick, LR infusing without difficulty. Assessment completed. Home medications reconcilled. Warm blankets provided. The patient's ran home to get some work done and will return to pick her up when her procedure is completed.
[2024-06-06] MEDS ORDERED: Lidocaine PF 2% (20 MG/ML) 5 ML VIAL ONE (14:42)
[2024-06-06 15:20] VITALS: BP 116/83; PULSE 79; TEMP 97.3
[2024-06-06 15:30] VITALS: BP 133/78; PULSE 77
--- NOTE | 2024-06-06 16:33 | NUR ---
1520- PT BACK FROM ENDO PROCEDURE TO BAY 4 VIA CART. PT AMBULATED FROM CART TO RECLINER WITH ASSISTANCE. MONITORS ON AND ALARMS SET. VSS. REPORT RECEIVED FROM YAIMA CANTU. PT REQUESTING FOOD AND DRINK. CALL LIGHT WITHIN REACH. NO OTHER NEEDS AT THIS TIME.
== END 2024-06-06 16:00 | disposition home or self-care (01) ==
LOC: SDCO 13:38
DX: Z12.11 Encounter for screening for malignant neoplasm of colon (principal); K50.819 Crohn's disease of both small and large intestine with unspecified complications; D12.5 Benign neoplasm of sigmoid colon; K21.9 Gastro-esophageal reflux disease without esophagitis; K22.2 Esophageal obstruction; Z87.891 Personal history of nicotine dependence; Z95.1 Presence of aortocoronary bypass graft
CPT/HCPCS: J2704; J7120

== ENCOUNTER → 2024-06-13 | Outpatient (CLI) | payer MEDICARE ==
[~2024-06-13] MED LIST changes: +CALCIUM 600600 MG PO; +FORTEO250 MCG/ML SQ; -LR 1,000 ML IV SCH; -Ondansetron 4 MG/2 ML VIAL IV PRN
== END ==
LOC: MC.RAD 13:14
DX: Z12.31 Encounter for screening mammogram for malignant neoplasm of breast (principal)